=== PATIENT | male | born 1935 | race Caucasian/White ===

== ENCOUNTER → 2018-08-08 12:22 | Outpatient (CLI) | payer MEDICARE, OTHER, SELFPAY ==
--- NOTE | 2018-08-08 | DI.RAD.S_ITS ---
PROCEDURE: XR CERVICAL SPINE 2V OR 3V INDICATIONS: NECK PAIN TECHNIQUE: 3 view(s) of the cervical spine were acquired. COMPARISON: None. FINDINGS: Bones: No fractures or dislocations to the C6 level. The lateral masses of C1 appear intact on the odontoid view. No suspicious bony lesions. Diffuse facet arthropathy. Diffuse moderate narrowing of the cervical disc spaces from C4-C7. There is mild C3-C4 disc space narrowing. Endplate sclerosis and spurring. Soft tissues: No prevertebral soft tissue swelling. IMPRESSION: Moderate to severe multilevel disease cervical disc degeneration and facet arthropathy. Dictated by: Toy Garcia M.D. on 08/08/2018 at 12:59 Approved by: Toy Garcia M.D. on 08/08/2018 at 13:00
== END ==
PROVIDERS: Family Provider Family Medicine; PCP Physician Assistant Medical; Visit Provider Physician Assistant Medical
DX: M50.31 Other cervical disc degeneration, high cervical region (principal); M48.02 Spinal stenosis, cervical region; M47.812 Spondylosis without myelopathy or radiculopathy, cervical region
CPT/HCPCS: 72040

== ENCOUNTER → 2018-11-10 14:43 | Outpatient (CLI) | payer MEDICARE, OTHER, SELFPAY ==
--- NOTE | 2018-11-10 | DI.ECHO.S_ITS ---
[facility]+ [facility] +---------+ : : [address] [place] : : : : [id number] : : : : Phone: [phone]+ Echocardiogram Report + + :Name: IVONNE RAMAN Study Date: 11/10/2018 Height: 68 in : :[facility] Weight: 182 lb : : Gender: Male BSA: 2.0 m2 : :: 1935 Age: 83 yrs BP: 122/80 mmHg: :Reason For Study: A FIB : :Ordering Physician: Gildardo : :Jose Enrique Performed By: Zainab Renae : :Referring: GILDARDO ALVA : + + Interpretation Summary The left ventricle is normal in size, wall thickness, and systolic function without any focal wall motion abnormalities with the ejection fraction visually estimated to be 55-60% and appears unchanged compared to the previous study. Diastolic function could not be accurately assessed due to atrial fibrillation. The right ventricle grossly appears normal in size with probable normal systolic function and is likely unchanged compared to the previous study. The right ventricular systolic pressure is estimated to be at least 41 mmHg based on an estimated right atrial pressure of 15 mm Hg, and is likely significantly higher compared to the previous study. There is severe biatrial enlargement. The left atrium has significantly increased in size since the prior echo exam while the right atrium has mildly increased in size. There is mild mitral regurgitation and mild to moderate tricuspid regurgitation that are both more prominent compared to the previous study. There is a bioprosthetic aortic valve that is well-seated with probable normal prosthetic valve function and only trace intravalvular regurgitation through the prosthetic aortic valve. There has been no significant change since the previous study. The patient was in atrial fibrillation with heart rates between 60 and 81 bpm during the exam which is new compared to the previous study. Procedure: A two-dimensional transthoracic echocardiogram with color flow and Doppler was performed. The study quality was technically adequate. Comparison is made with the echocardiogram of 04/09/16. The patient was in atrial fibrillation with heart rates between 60 and 81 bpm during the exam. This is new compared to the previous study. Left Ventricle: The left ventricle is normal in size, wall thickness, and systolic function without any focal wall motion abnormalities. The ejection fraction is estimated to be 55-60%. This is unchanged compared to the previous study. Diastolic function could not be accurately assessed due to atrial fibrillation. Right Ventricle: The right ventricle grossly appears normal in size with probable normal systolic function. This is unchanged compared to the previous study. Atria: There is severe biatrial enlargement. The left atrium has significantly increased in size since the prior echo exam. The right atrium has mildly increased in size since the prior echo exam. There is no Doppler evidence for an interatrial shunt. Mitral Valve: The mitral valve leaflets appear mildly thickened, but open well. The mitral valve leaflets are slightly calcified. There is mild mitral regurgitation. This is slightly more prominent compared to the previous study. Aortic Valve: There is a bioprosthetic aortic valve. The prosthetic aortic valve is well-seated. There is probable normal prosthetic aortic valve function. There is trace intravalvular regurgitation through the prosthetic aortic valve. The peak aortic velocity is 2.5 m/sec. The peak aortic velocity on the previous exam was 3.2 m/sec. The aortic valve mean gradient is 13 mmHg. There has been no significant change since the previous study. Tricuspid Valve: The tricuspid valve is normal. There is mild to moderate tricuspid regurgitation. This is more prominent compared to the previous study. The right ventricular systolic pressure is estimated to be at least 41 mmHg based on an estimated right atrial pressure of 15 mm Hg. And this is likely significantly higher compared to the previous study. Pulmonic Valve: The pulmonic valve is not well seen, but is grossly normal. There is a trace or physiologic amount of pulmonic regurgitation. Great Vessels: The aortic root is normal size. The ascending aorta is normal in size. The aortic arch is normal in size. The pulmonary is not well visualized. The IVC is dilated (diameter is greater than 2.1 cm) and it collapses less than 50% with a sniff. This suggests a high right atrial pressure of 15 mm Hg. Pericardium/ Pleura There is no pericardial effusion. There is no pleural effusion. MMode/2D Measurements & Calculations LVIDd: 4.9 cm LVOT diam: 2.1 cm LVIDs: 3.2 cm Ao root diam: 3.3 cm FS: 36.0 % asc Aorta Diam: 3.2 cm EPSS: 0.57 cm Ao Arch Diam (Prox Trans): 2.7 cm IVSd: 0.97 cm LVPWd: 1.0 cm LV bach. diameter/BSA (cm/m^2): 2.5 LV sys. diameter/BSA (cm/m^2): 1.6 LA A2 area: 31.6 cm2 RA long axis: 6.4 cm LA A4 area: 36.2 cm2 RA area: 29.6 cm2 LA length (vol): 6.9 cm RA vol: 115.7 ml LA vol: 141.2 ml RA : 58.9 ml/m2 LA vol index: 71.9 ml/m2 IVC diam: 2.4 cm RVD1 (basal): 5.4 cm RVD2 (mid): 3.5 cm TAPSE: 1.5 cm Doppler Measurements & Calculations Ao V2 max: 246.8 cm/sec LVOT Max Vinicio: 101.4 cm/sec Ao V2 mean: 173.0 cm/sec LV V1 max P.1 mmHg Ao max P.4 mmHg LV V1 VTI: 19.3 cm Ao mean P.4 mmHg BERNABE(I,D): 1.4 cm2 Ao V2 VTI: 47.7 cm BERNABE(V,D): 1.4 cm2 sev ratio: 0.41 BERNABE indexed to BSA (cm^2/m^2): 0.70 MV E max vinicio: 115.0 cm/sec TR max vinicio: 252.8 cm/sec TR max P.6 mmHg PA V2 max: 57.0 cm/sec PA V2 mean: 38.4 cm/sec PA mean P.67 mmHg PA pr(Accel): -148.1 mmHg PA Accel Time: 0.09 sec SV(LVOT): 65.6 ml Reading Physician:PM
== END ==
PROVIDERS: PCP Family Medicine; Visit Provider Specialist
DX: I08.1 Rheumatic disorders of both mitral and tricuspid valves (principal); I48.91 Unspecified atrial fibrillation; Z95.2 Presence of prosthetic heart valve
CPT/HCPCS: 93306

== ENCOUNTER 2020-05-12 03:08 | Emergency (ER) | payer MEDICARE, OTHER, SELFPAY ==
[2020-05-12] VITALS (8 sets, daily range): BP systolic 115–160; BP diastolic 72–100; PULSE 72–129; RESP 15–27; O2SAT 92–98; BMI 24.9
--- NOTE | 2020-05-12 03:40 | ED_ITS ---
HPI - General Adult General Chief complaint: Urogenital-Male Stated complaint: Urinary Retention Time Seen by Provider: 05/12/20 03:13 Source: patient Mode of arrival: EMS Limitations: no limitations History of Present Illness HPI narrative: Patient is an 84-year-old male with reported history of enlarged prostate to yesterday morning had a urinary catheter removed by his primary provider. Patient states that since that catheter was removed he has been unable to urinate. He was sent over from [facility] by helicopter for abdominal pain and urinary retention and also AFib with a fast heart rate. Patient has a history of AFib. Review of Systems Constitutional Constitutional: Denies fever(s) Cardiovascular Cardiovascular: Denies chest pain, Reports rapid heart rate and Denies dyspnea Respiratory Respiratory: Denies dyspnea Gastrointestinal Gastrointestinal: Reports abdominal pain Genitourinary Genitourinary: Reports difficulty urinating Neurologic Neurologic: Denies confusion Psychiatric Psychiatric: Denies confusion Hematologic/Lymphatic Comments: On anticoagulation Patient History Medical History BPH (benign prostatic hyperplasia) (Acute) Urinary retention (Acute) Social History Smoking Status: Never smoker Smoking Status: Never smoker alcohol intake frequency: 0-2 drinks per day Alcohol type: hard liquor Substance Use Type: does not use Exam Initial Vital Signs Initial Vital Signs: Vital Signs Pulse Rate 122 H 05/12/20 03:20 Respiratory Rate 18 05/12/20 03:20 Blood Pressure 160/100 H 05/12/20 03:20 Pulse Oximetry 98 05/12/20 03:20 Const General: cooperative and comfortable Limitations: mental status not altered [facility] Head: normal to inspection and normocephalic Cardio Rate: tachycardic Rhythm: regular rhythm GI Inspection: distended Palpation: tender Skin Rashes: no rashes Neuro General: patient alert, patient awake and patient oriented x3 Extrem General: No edema Psych Appearance: grossly normal and well kempt Course Orders Ordered: Discontinued Medications Lidocaine HCl (Urojet) 5 ml TOP NOW ONE Stop: 05/12/20 03:14 Vital Signs Vital signs: Vital Signs - 8 hr 05/12/20 03:20 05/12/20 03:24 05/12/20 03:30 Pulse Rate 122 H 129 H 111 H Respiratory Rate 18 21 27 H Blood Pressure 160/100 H 138/89 141/96 H Pulse Oximetry 98 96 97 05/12/20 03:34 Pulse Rate 85 Respiratory Rate 25 H Blood Pressure 138/89 Pulse Oximetry 96 Medical Decision Making MDM Narrative Medical decision making narrative: Patient arrived tachycardic and in atrial fibrillation however after the Lynne catheter was placed with a return of 800 cc urine his heart rate decreased into the 70s/80s. In discussion with the patient. We will leave the Lynne catheter in place and have him follow up this primary provider. He was also given contact information for Urology he was given return precaution and follow-up instructions. He expressed understanding and agreement Discharge Plan Departure Patient Disposition: Home Clinical Impression: Acute retention of urine Instructions: How to Care for Your Lynne Catheter -- Male, DI for Urinary Retention in Men Activity Restrictions/Additional Instructions: I recommend that you contact your primary provider and also the urology department here at [facility]. Our urologist name is Dr. Solomon. At [phone]. Referrals: Baldomero Fontanez MD [Primary Care Provider] -
--- NOTE | 2020-05-12 04:09 | PC.NURSE ---
He has discharge printed and ready,he is awaiting his to [place],brewster catheter is draining well.Will be allowed to sleep,call frankel in reach,has no needs he said.no pain.
== END 2020-05-12 09:20 | disposition home or self-care (01) ==
PROVIDERS: Emergency Provider Emergency Medicine; PCP Family Medicine
DX: R33.8 Other retention of urine (principal); R10.9 Unspecified abdominal pain; R00.0 Tachycardia, unspecified; I48.91 Unspecified atrial fibrillation
CPT/HCPCS: 51701; 99283

== ENCOUNTER → 2020-09-21 09:29 | Outpatient (CLI) | payer MEDICARE, OTHER, SELFPAY | PROVIDERS: PCP Family Medicine; Visit Provider Specialist | DX: N39.0 Urinary tract infection, site not specified (principal); R33.9 Retention of urine, unspecified; N40.1 Benign prostatic hyperplasia with lower urinary tract symptoms; N13.8 Other obstructive and reflux uropathy | CPT/HCPCS: 52000; 76872; 87077; 87086; 87186; 99215 ==

== ENCOUNTER 2020-10-24 10:58 | Inpatient (IN) | payer MEDICARE, OTHER, SELFPAY ==
[2020-10-24] VITALS (13 sets, daily range): BP systolic 89–158; BP diastolic 56–87; PULSE 61–86; RESP 9–17; TEMP 36.4–37.2; O2SAT 92–98; BMI 26.1
--- NOTE | 2020-10-24 | PATH_ITS ---
[facility] Accession Number: [id number] . 01 Material submitted: . prostate - PROSTATE ADENOMA . 01 Clinical history: . IP SIMPLE OPEN PROSTATECTOMY . 02 Diagnosis: Prostate, Simple Open Prostatectomy: Benign nodular hyperplasia of prostate. Negative for neoplasm. MRV 10/27/2020 1143 Local . 02 Electronically signed: . Valarie Aguilar MD, Pathologist NPI- [id number] . 01 Gross description: . The specimen is received in formalin, labeled prostate adenoma and consists of multiple irregular dobbins-pink fragments of soft tissue weighing 93 grams and measuring 11.0 x 10.0 x 5.0 cm in aggregate. Sectioning reveals dobbins-white lobulated and cystic cut surfaces. A 4.0 cm in length by 0.5 cm in circumference possible portion of urethra is identified. [employer] sections are submitted in cassettes A1-A6. ([id number]) /MRV 10/25/2020 1442 Local . 02 Pathologist provided ICD-10: N40.1, R33.9 . 02 CPT . 746435 Performed at: 01 [facility] [address], [place], [place] [id number] MD Sidney Tuttle MD Phone: [phone] Performed at: 02 [facility] [address] [place], [place] [id number] MD Valarie Aguilar MD Phone: [phone]
--- NOTE | 2020-10-24 11:40 | PM.HP.1 ---
History of Present Illness History of Present Illness Date Patient Seen: 10/24/20 Time Patient Seen: 11:40 Chief complaint: IP SIMPLE OPEN PROSTATECTOMY Narrative: The patient is an 84-year-old white male with a long history of BPH and mixed obstructive and irritative voiding symptoms presenting today for planned simple open prostatectomy. The he has been under management for years with alpha blockade. In April of 2020 he experienced worsening bladder outlet obstructive symptoms. He presented to the [facility] ED and Lynne catheter was placed with 800 cc residual volume. He has failed several subsequent voiding trials. Lower tract evaluation revealed bladder outlet obstruction due to markedly enlarged prostate that measured 130 cubic cm. The patient has a history of AFib on chronic warfarin anticoagulation. He has discontinued the medication as planned in coordinated preoperatively with his primary computerized table cutter, Dr. Quispe. Patient History Medical History Afib Ascending aorta dilatation Atrial enlargement, bilateral Bicuspid aortic valve Bladder outlet obstruction BPH w urinary obs/LUTS CAD (coronary artery disease) Chronic anticoagulation Degeneration, intervertebral disc, cervical Dyslipidemia Exercise involving walking First degree AV block Hypertension LVH (left ventricular hypertrophy) Mitral regurgitation Retention of urine SVT (supraventricular tachycardia) Tricuspid regurgitation Urinary retention Valvular heart disease Surgical History H/O cardiac radiofrequency ablation History of cardiac cath S/P aortic valve replacement with bioprosthetic valve (~2006) Vasectomy status Family & Social History Social History: household members spouse Prior Living Arrangements House Safety & Behavioral: Feels Safe in Current Yes Environment Been Physically Hurt or No Threatened By a Person Suicidal Ideation Description None Suicide Plan Description No Plan Tobacco & Substance use: Tobacco type pipe Smoking Status Former smoker alcohol intake current alcohol intake frequency 0-2 drinks per day Substance Use Type does not use Meds Home Medications and Allergies Home Medications Medication Instructions Recorded Confirmed Type tamsulosin 0.4 mg capsule 0.8 mg PO BEDTIME #180 cap 05/17/20 10/24/20 Rx GR-jqykpqfgiiv-jsayvt ox-Zn ER 500 500 tab PO DAILY 06/02/20 10/24/20 History mcg-750 mg-1.5 mg-25 mg tablet,ER simvastatin 40 mg tablet 40 mg PO QPM 06/02/20 10/24/20 History terazosin 10 mg capsule 10 mg PO DAILY 06/02/20 10/24/20 History warfarin 2.5 mg tablet 2.5 mg PO DAILY 06/02/20 10/24/20 History ciprofloxacin HCl 250 mg tablet 250 mg PO BID #10 tab 10/18/20 10/24/20 Rx Allergies Allergy/AdvReac Type Severity Reaction Status Date / Time Penicillins Allergy Mild Localized Verified 10/18/20 15:09 Itching atropine AdvReac rapid Verified 10/18/20 15:09 heart rate Exam Narrative Exam Narrative: He is a well-developed, thin elderly white male in no acute distress. Head/neck-atraumatic and normocephalic. No visible adenopathy JVD. Sclerae clear bilaterally pupils are equal and round. Chest-clear, equal, nonlabored expansion bilaterally. Heart-regular rate. No abnormal heart tones appreciated. Assessment & Plan Assessment & Plan narrative: Assessment: 1. Urinary retention. 2. Failure of medical therapy and multiple voiding trials. Plan: 1. Admission today for planned simple open prostatectomy. Common side effects, possible complications, perioperative limitations/restrictions, and reasonable expectations of outcomes and recovery were reviewed at length and in detail in the outpatient setting with the patient. He provides no interval clear finding concerns or questions. He wishes to proceed.
[2020-10-24 11:52] LABS: COVID19 -Nasal RAPID Negative (Negative)
[2020-10-24] MEDS: LACTATED RINGERS 1,000 ML 42 ML IV ×2 (12:04→15:51)
[2020-10-24 12:07] LABS: Hematocrit 48.8 % (41-53); Hemoglobin 16.2 g/dL (13.5-17.5)
[2020-10-24] MEDS: VANCOMYCIN 1,000 MG/200 ML PIGGYBACK 200 MG IV (12:07)
[2020-10-24 12:16] LABS: INR 1.2 (0.9-1.3); Prothrombin Time 13.7 SECONDS (10.1-12.7)
[2020-10-24 12:19] LABS: PTT Partial Thromboplastin Tim 32 SECONDS (26.4-36.2)
[2020-10-24 12:34] LABS: BUN Creatinine Ratio 18.8 (6-22); Blood Urea Nitrogen 16 mg/dL (9-20); Calcium 10.2 mg/dL (8.4-10.2); Carbon Dioxide 25 mmol/L (22-32); Chloride 105 mmol/L (98-107); Estimated Glomerular Filt Rate > 60.0 mL/min (>60); Glucose 108 mg/dL (80-110); HEMOLYSIS < 15 (0-50); Potassium 4.3 mmol/L (3.4-5.1); Sodium 139 mmol/L (137-145)
[2020-10-24] MEDS: GENTAMICIN 160 MG in SODIUM CHLORIDE 0.9% 100 ML 104 ML IV (12:56)
--- NOTE | 2020-10-24 13:20 | SUR.OPER ---
Supine on padded OR bed, head on pillow, arms secured on padded arm boards at <90 degrees abduction, legs uncrossed, safety belt at thigh, tape over blanket over lower legs. Pillow under knees, gel pad under heels
[2020-10-24] MEDS: BUPIVACAINE 0.25% W/ EPI 30 ML VIAL INJ (13:29)
[2020-10-24] MEDS: BUPIVACAINE LIPOSOME 266 MG/20 ML VIAL INJ (13:29)
--- NOTE | 2020-10-24 13:40 | SUR.OPER ---
Patient catheterized at home. Guera APONTE'ima at start of case. 150ml of urine in leg bag.
[2020-10-24] MEDS: ACETAMINOPHEN IV 1,000 MG/100 ML VIAL 400 MG IV (15:15)
--- NOTE | 2020-10-24 15:29 | PM.OP.1 ---
Operative Date/Time/Diagnoses Date of procedure: 10/24/20 Time of procedure: 15:29 Pre-op diagnosis: Urinary retention Post-op diagnosis: same Procedure & Clinicians Procedure: 1. Simple open prostatectomy Same procedure as scheduled: Yes Indications: 1. Urinary retention. 2. Failure medical therapy. Surgeon: Crista Solomon Tool Dispatcher: Xochitl Haile Click Yes if Unassisted: No Anesthesia Type: General, Spinal and Local Operative Notes Findings: 1. Normal anterior abdominal wall tissue point. 2. Catheter tip cystitis and mucosal inflammatory changes due to long-term indwelling Lynne. 3. Nodular BPH. Closure Type: primary Specimen(s): other (Prostate adenoma) Applied: catheter (Twenty-two Pitc[place] Islander [address] Lynne catheter with 30 cc balloon) and drain(s) (15. [place] Islander Obi drain) Estimated Blood Loss (mL): 300 Blood products transfused: none Tourniquet time (min): 0 Procedure in detail: Patient was positioned in supine following successful placement of Duramorph spinal anesthesia. General anesthesia was then administered. The abdomen, genitalia, and groin were then prepped and draped in sterile fashion. A 22 [place] Islander Lynne catheter was then inserted lower urinary tract and the bladder was filled with 300 cc of sterile saline. A midline infraumbilical incision was then made above the pubic symphysis. The layers of the midline abdominal wall were then divided using cautery and blunt technique. Space of Retzius was then exposed with mobilization retraction of the adherent fat of the anterior bladder wall laterally. A solution of cord% Marcaine with epinephrine was then used to infiltrate the midline anterior bladder wall. A midline cystotomy was then created with the cautery pen. Retractors were then positioned appropriately for visualization of the bladder neck. The same anesthetic was then used to infiltrate the mucosa and subcutaneous smooth muscle circumferentially around the bladder neck. A circumferential incision was then made using the tip of the cautery pen. Next, an 0 Vicryl was then placed at the bladder neck and prostatic base for retraction. Meticulous blunt sharp and cautery dissection were then utilized to mobilize the prostatic adenoma from the confines of the capsule. 0 Vicryl using over and throws was utilized to gain exposure and retraction of the prostate toward the bladder lumen proper. The adenoma was eventually removed in its entirety and submitted to pathology for routine gross and microscopic examination. [id number]-ab-iqhsz 2-0 Prolene were then placed at the 5 and 7:00 a.m. positions of the bladder neck for hemostasis. A single horizontal mattress utilized and same suture was then placed at the distal most posterior to the bladder and then secured more proximally within the prostatic fossa. A 22 [place] Islander, 2 way 5 Lynne catheter was then passed into the bladder with the assistance of a catheter guide. The cystotomy was then closed using a running, intermittently locking 2-0 Monocryl. Hemostasis was excellent. The catheter balloon was then inflated to 30 cc and gentle traction was applied. It was then irrigated clear. There were no clots. It was placed to gravity drainage. Next, a 15 [place] Islander Obi fenestrated drain was positioned in the space of Retzius and brought out through separate stab incision to the right of midline incision. It was secured to the skin with 2-0 silk in usual fashion. Exparel local anesthetic was then used infiltrate the fascial edges and skin edges bilaterally. The fascia was then reapproximated using running 0 PDS beginning at each the superior apex, and the inferior apex in a running fashion and time 1 another together at approximately the midpoint. The subcutaneous layer was closed using running 3-0 Vicryl. The skin edges were reapproximated using a running subcuticular 4-0 Monocryl. The skin surface was cleaned and dried. Telfa dressing was tailored to the appropriate size for the incision and the drain site. Each was then covered with an Op site dressing grade and a Bioclusive finish. A orthotic assistant was required due to the complexity of the case. The orthotic assistant performed retraction, hemostasis, and suturing. Patient was then awakened, and transferred to [facility], and transported to PACU. Complications: none Post-operative Condition: stable Disposition: PACU Plan for aftercare: Acute care.
--- NOTE | 2020-10-24 16:26 | SUR.PHASEI ---
Late entry - Pt received to PACU after spinal / general anesthesia. Airway patent, self maintained. Report from Dr Calix and ROOSEVELT Dash. Dr Calix aware of hypotension. Will give additional fluid.
--- NOTE | 2020-10-24 16:28 | SUR.PHASEI ---
EBL = 400. Total IVF replaced = 1600ml. SBP now >100. Report given to ROOSEVELT Hodgson. Pt transferred to room 210 by ROOSEVELT Root and ROOSEVELT Watson. Pt belongings brought to room by ROOSEVELT Yañez.
[2020-10-24] MEDS: LACTATED RINGERS 1,000 ML 125 ML IV (16:51)
[2020-10-24 23:25] LABS: Add Manual Diff / Slide Review NO; Basophils Absolute Auto 0 /uL (0-100); Basophils Percent Auto 0.3 % (0-2); Eosinophils Absolute Auto 0 /uL (0-450); Hematocrit 40.9 % (41-53); Hemoglobin 13.5 g/dL (13.5-17.5); Lymphocytes Absolute Auto 500 /uL (1100-4500); Mean Corpuscular Hemoglobin 29.6 PG (26-34); Mean Corpuscular Volume 89.6 fL (80-100); Monocytes Absolute Auto 200 /uL (0-900); Monocytes Percent Auto 1.5 % (3-14); Neutrophils Absolute Auto 11100 /uL (1500-7000); Neutrophils Percent Auto 94.2 % (50-75); Platelet Count 152 X10^3/uL (150-400); Red Blood Cell Count 4.57 X10^6/uL (4.5-5.9); Red Cell Distribution Width 14.9 % (11.6-14.8); White Blood Cell Count 11.7 X10^3/uL (4.5-11.0)
--- NOTE | 2020-10-24 23:30 | P.EN_ITS ---
Event Note Event Note: Requested through nursing to consult the patient at the request by Dr. Elise. Upon review of his chart, it is noted his PCP is Dr. Santo who does his own admissions and consults. I informed Dr. Quigley as well as the patient's nurse of this and they will contact A on-all hospitalist for any further questions u nless something critical arises. So will not assume consult at this time. One time troponin is pending and I have been advised by his nurse that his PVCs have seemed to have resolved.
[2020-10-24 23:32] LABS: Alanine Aminotransferase 26 IU/L (<50); Albumin 3.4 g/dL (3.5-5.0); Albumin Globulin Ratio 1.4 (1.0-2.8); Alkaline Phosphatase 29 U/L (38-126); Aspartate Aminotransferase 34 IU/L (17-59); BUN Creatinine Ratio 23.9 (6-22); Bilirubin Total 0.7 mg/dL (0.2-1.3); Bilirubin Unconjugated 0.7 mg/dL (0.0-1.1); Blood Urea Nitrogen 21 mg/dL (9-20); Calcium 9.1 mg/dL (8.4-10.2); Carbon Dioxide 28 mmol/L (22-32); Chloride 104 mmol/L (98-107); Creatine Kinase 186 U/L (55-170); Estimated Glomerular Filt Rate > 60.0 mL/min (>60); Globulin 2.5 g/dL (1.7-4.1); Glucose 140 mg/dL (80-110); HEMOLYSIS 16 (0-50); Magnesium 1.7 mg/dL (1.6-2.3); Potassium 4.8 mmol/L (3.4-5.1); Sodium 137 mmol/L (137-145); Total Protein 5.9 g/dL (6.3-8.2)
[2020-10-24 23:43] LABS: Troponin I < 0.012 ng/mL (0.01-0.034)
[2020-10-24 23:47] LABS: CKMB % Relative Index 1.8 % (1.5-5.0)
--- NOTE | 2020-10-24 23:59 | PC.NURSE ---
Report received from PACU, care assumed 1630. A&Ox4. VSS. Denies pain. Short, low midline dressing with scant serosanguinous drainage, ANGELA drain. David blood in catheter, no clots, Dr. Solomon aware. Tele for AFib. Increased occurrence of PVC's. Pt. denies symptoms. Dr. Solomon informed, ordered to resume home meds and consult hospitalist. JOSE LUIS Alexander, informed. Labs ordered. Glayds spoke to Dr. Alarcon, as pt's PCP is Dontae. PVC's have decreased in frequency again without intervention. OOB to ambulate in room. Penile bleeding. Back to bed, flushed Lynne, no clots observed.
[2020-10-25] VITALS (7 sets, daily range): BP systolic 98–146; BP diastolic 58–94; PULSE 62–87; RESP 15–22; TEMP 36.3–37.4; O2SAT 94–97
[2020-10-25] MEDS: LACTATED RINGERS 1,000 ML 125 ML IV ×2 (00:10→08:44)
--- NOTE | 2020-10-25 07:17 | P.CONS_ITS ---
History of Present Illness Consult details Date Patient Seen: 10/25/20 Chief complaint: IP SIMPLE OPEN PROSTATECTOMY Reason for consult: recurrent PVCs Narrative: Pt is an 84yo man with atrial fibrillation on chronic anticoagulation, AVR, HTN, and BPH with obstructive symptoms who is POD #1 s/p open prostatectomy, consulted due to recurrent PVCs on telemetry posto peratively. Around 22:00 last night, the pt had multiple runs of recurrent PVCs. The pt was asymptomatic at the time and currently. He denies any chest pain or SOB. He has not been feeling any palpitations. He has chronic atrial fibrillation, currently rate controlled. He is not on any beta blockers or calcium channel blockers. This morning, the pt is pleasantly talkative and sitting eating breakfast in bed. He did not know there were any heart concerns last night. He is feeling well. He denies any significant pain. He continues to deny any chest pain, SOB, or palpitations. Meds Home Medications and Allergies Home Medications Medication Instructions Recorded Confirmed Type tamsulosin 0.4 mg capsule 0.8 mg PO BEDTIME #180 cap 05/17/20 10/24/20 Rx AN-higmxedqvlq-nxundp ox-Zn ER 500 500 tab PO DAILY 06/02/20 10/24/20 History mcg-750 mg-1.5 mg-25 mg tablet,ER simvastatin 40 mg tablet 40 mg PO QPM 06/02/20 10/24/20 History terazosin 10 mg capsule 10 mg PO DAILY 06/02/20 10/24/20 History warfarin 2.5 mg tablet 2.5 mg PO DAILY 06/02/20 10/24/20 History ciprofloxacin HCl 250 mg tablet 250 mg PO BID #10 tab 10/18/20 10/24/20 Rx Allergies Allergy/AdvReac Type Severity Reaction Status Date / Time Penicillins Allergy Mild Localized Verified 10/18/20 15:09 Itching atropine AdvReac rapid Verified 10/18/20 15:09 heart rate Exam Vital Signs (past 8 hours): - 10/25/20 00:00 10/25/20 05:00 Temperature 97.3 F L 97.8 F Pulse Rate 72 62 Respiratory Rate 18 18 Blood Pressure 109/66 108/64 Pulse Oximetry 97 95 Oxygen Delivery Method Room Air Oxygen Flow Rate 0 Narrative Exam Narrative: Gen: NAD, sitting comfortably in bed, appears well HEENT: normocephalic, atraumatic, sclera clear Neck: no JVD, no LAD CV: irregularly irregular rhythm, normal rate, grade 2/6 systolic murmur Resp: clear to auscultation bilaterally Abd: soft, nontender, nondistended, normoactive bowel sounds Ext: no edema Objective Labs Result Diagrams: 10/24/20 23:15 10/24/20 23:15 Labs: Laboratory Results - last 24 hr 10/24/20 10/24/20 10/24/20 11:28 11:56 11:56 WBC RBC Hgb 16.2 Hct 48.8 MCV MCH MCHC RDW Plt Count Neut % (Auto) Lymph % (Auto) Placer % (Auto) Eos % (Auto) Baso % (Auto) Neut # (Auto) Lymph # (Auto) Placer # (Auto) Eos # (Auto) Baso # (Auto) PT 13.7 H INR 1.2 APTT 32 Sodium Potassium Chloride Carbon Dioxide BUN Creatinine Estimated GFR BUN/Creatinine Ratio Glucose Calcium Magnesium Total Bilirubin Conjugated Bilirubin Unconjugated Bilirubin AST ALT Alkaline Phosphatase Total Creatine Kinase CK-MB (CK-2) CK-MB (CK-2) Rel Index Troponin I Total Protein Albumin Globulin Albumin/Globulin Ratio SARS-CoV-2 (PCR) Negative 10/24/20 10/24/20 10/24/20 11:56 23:15 23:15 WBC 11.7 H RBC 4.57 Hgb 13.5 Hct 40.9 L MCV 89.6 MCH 29.6 MCHC 33.0 RDW 14.9 H Plt Count 152 Neut % (Auto) 94.2 H Lymph % (Auto) 4.0 L Placer % (Auto) 1.5 L Eos % (Auto) 0.0 L Baso % (Auto) 0.3 Neut # (Auto) 27661 H Lymph # (Auto) 500 L Placer # (Auto) 200 Eos # (Auto) 0 Baso # (Auto) 0 PT INR APTT Sodium 139 Potassium 4.3 Chloride 105 Carbon Dioxide 25 BUN 16 Creatinine 0.85 Estimated GFR > 60.0 BUN/Creatinine Ratio 18.8 Glucose 108 Calcium 10.2 Magnesium Total Bilirubin Conjugated Bilirubin Unconjugated Bilirubin AST ALT Alkaline Phosphatase Total Creatine Kinase 186 H CK-MB (CK-2) 3.30 H CK-MB (CK-2) Rel Index 1.8 Troponin I < 0.012 Total Protein Albumin Globulin Albumin/Globulin Ratio SARS-CoV-2 (PCR) 10/24/20 23:15 WBC RBC Hgb Hct MCV MCH MCHC RDW Plt Count Neut % (Auto) Lymph % (Auto) Placer % (Auto) Eos % (Auto) Baso % (Auto) Neut # (Auto) Lymph # (Auto) Placer # (Auto) Eos # (Auto) Baso # (Auto) PT INR APTT Sodium 137 Potassium 4.8 Chloride 104 Carbon Dioxide 28 BUN 21 H Creatinine 0.88 Estimated GFR > 60.0 BUN/Creatinine Ratio 23.9 H Glucose 140 H Calcium 9.1 Magnesium 1.7 Total Bilirubin 0.7 Conjugated Bilirubin 0.0 Unconjugated Bilirubin 0.7 AST 34 ALT 26 Alkaline Phosphatase 29 L Total Creatine Kinase CK-MB (CK-2) CK-MB (CK-2) Rel Index Troponin I Total Protein 5.9 L Albumin 3.4 L Globulin 2.5 Albumin/Globulin Ratio 1.4 SARS-CoV-2 (PCR) Assessment & Plan Assessment & Plan narrative: Pt is an 84yo man with atrial fibrillation on chronic anticoagulation, AVR, HTN, and BPH with obstructive symptoms who is POD #1 s/p open prostatectomy, consulted due to recurrent PVCs on telemetry postoperatively. Pt remained asymptomatic with negative troponin. PVCs have now resolved. Would not recommend any change in medical management at this time. Could consider beta-nusrat in the future if becomes recurrent, symptomatic, issue. 1) BPH with obstruction, s/p prostatectomy: - Continue management as per Urology 2) PVCs: Resolved. Asymptomatic. - Continue telemetry while in the hospital - No medical intervention at this time 3) Atrial fibrillation: Rate controlled off medications - Restart Warfarin as soon as able as per surgical team based on Cardiology recommendations 4) HTN: BP stable Dispo: At discretion of primary Urology team. Medically stable for discharge. Medical team can be contacted in the future if additional concerns arise, but will sign-off at this time.
[2020-10-25] MEDS: ENOXAPARIN 40 MG/0.4 ML SYRINGE SUBCUT (08:44)
[2020-10-25] MEDS: TAMSULOSIN 0.4 MG CAPSULE PO (08:44)
--- NOTE | 2020-10-25 10:59 | PC.NURSE ---
Addendum entered by Taisha Louis R.N. 10/25/20 11:59: Patient has not had any more penile bleeding from urethra. He is eating his lunch and tolerating this well. He denies pain and is waiting for the doctor to see him. Original Note: Assess- Patient is alert and oriented x3. He has a brewster catheter in that does have some blood around urethra, cleaned up. Urine color is cranberry colored. Patients dressing to lower abdomen cdi with small amount of dried blood. When patient got up to the bathroom to try for a bowel movement he did have a small amount of red blood out of his penis. Cleaned up, passed gas and is now back to bed. He denies pain or discomfort. Resting comfortably. Waiting to see the Doctor. Will ask Urologist if he wants patient to take a particular medication that he had him stop before surgery.
--- NOTE | 2020-10-25 13:29 | CM.DANOTE ---
DCP/Assessment: Reviewed chart. Patient is a 84yr old male admitted to [facility] for elective prostatectomy performed by Dr. Solomon on 10-24-20. PCP listed is Dr. Fontanez. Primary payor is 1)Medicare 2)[facility]. Met with patient explained CM/SW role. Patient reports that he resides on [facility] with spouse/Mireya. Patient indicates that he is completely I in all ADL's. Patient reports the he flies small planes as hobby. Patient reports that he believes that Dr. Solomon will d/c him tomorrow? Patient has had catheter prior to admit and will be discharging with one as well. Patient reports that he is very well educated on catheter care. At this time patient does not anticipate any d/c planning needs. P: Home when medically stable. EMILY Cortez Discharge Planning/Care Management CM Discharge Assessment Start: 10/25/20 13:24 Freq: Status: Active Protocol: Document 10/25/20 13:24 KJS (Rec: 10/25/20 13:29 KJS [id number]) Discharge Planning Assessment Assigned Fur Buyer EMILY Cortez Contact Information Mireya Emmanuel (spouse) # Advance Directives? Yes History Provided By Patient,Medical Record Prior Living Arrangements House Household Members spouse Type of transporation used prior to Drives own vehicle admit Independent with ADL's Yes Is patient alert and oriented? Yes Caregiver for Another No Barriers to Discharge No Discharge Plan Home Transportation Arrangement Spouse to provide transport when stable. Patient will need priority boarding to return to [facility]. Referrals Initiated None needed Whiteboard Updated in Patient Room with Yes name and ext. # of Fur Buyer Review Status In Process Next Review Type Continued Stay Review Pre-Anesthesia Assessment Start: 10/17/20 16:40 Freq: Status: Active Protocol: Document 10/17/20 16:40 SONJA (Rec: 10/17/20 16:59 [email or web address] [id number]) Pre-Anesthesia Assessment Preferred Name Harrison Patient Information Reviewed Via Chart Review,Phone Assessment Assessment Completed With Patient H&P Completed Within 30 Days Yes Primary Care Provider Baldomero Fontanez Seen Specialist in Last 12 Months Yes Specialist Seen Emergency,Urologist Comment changing to the [facility], not yet established Primary Language Syriac Preferred Language Syriac Dean Of Student [employer] Required No Height 172.72 cm Hearing Ability Normal Visual Impairment Partially Limited Dentition Type Teeth, Natural Present Barriers to Learning Visual Other Aids No Comment reading glasses Hx Anesthesia Reactions No Hx Family Anesthesia Reaction No Hx Malignant Hyperthermia No Hx Blood Transfusions No Hx Blood Transfusion Reaction No Anesthesia Review Requested No Grinder Tender No alcohol intake current alcohol intake frequency 0-2 drinks per day Smoking Status Former smoker Tobacco type pipe Has it been 2 weeks or less since No patient quit smoking how long ago did patient quit smoking 1972 Substance Use Type does not use Pain Present Pain Reported Comment discomfort from catheter History of Falling (Recent or History of No ) Patient is completely paralyzed or Yes completely immobile Ambulatory Aid None/bed rest/nurse assist Gait/Transferring Normal/bedrest/immobile Mental Status Oriented to own ability Is patient on oxygen? No Does patient have HONG/SOB No Hx Sleep Apnea No CPAP/BIPAP use prescribed not used Currently Taking a Beta Danuta No Can You Climb a Flight of Stairs Without Yes SOB Hx Chest Pain No Hx SOB No Hx Syncope or Dizziness No Anti-Coagulant Therapy Yes: Warfarin, last dose will be 10/19/20 Has a Head Sampler Yes: Jose Enrique Cardiac Testing Yes: Echo 10/31 EF 55-60% Hx Pacemaker/ICD No Pacemaker Rep Required? No Cardiac Clearance Received Not Applicable Diet Type At Home Regular dysphagia No Bladder Pattern Retention Urinary Catheter Present Yes Hx Urinary Self Catheterization No Diabetes No Hx Drug Resistant Organism No Presence of External or Internal Medical Yes: Catheter Devices Have you had any close contact with No someone diagnosed with COVID-19? Evaluation/Screening for possible COVID- Yes 19 infection completed? Comment has had two vaccines, Covid test on DOS - plans rapid on admit Marital Status Lives With spouse Prior Living Arrangements House Number of Floors (Floors) Two Floors Support System Spouse Does the Patient Have Assistance After Yes Surgery Patient Discharge Plan Description Home Health Feels Safe in Current Environment Yes Been Physically Hurt or Threatened By a No Person in Current Environment Do you have thoughts of harming yourself None or others? Are you currently considering suicide? No Do you have a plan to hurt yourself or No Plan others? Do You Have Any Spiritual Beliefs That No May Affect Your HC Choices? Do You Have Any Cultural Practices That No May Affect Your HC Choices? Comment Restorationism Who Can We Speak to About Patient's Care Family & Friends Identifying Code for Release of Patient Declined Information Health Care Proxy/Next of Kin Spouse - Mireya Blinn Health Care Proxy ; [phone] Emergency Contact Name Spouse - Mireya Emmanuel Emergency Contact ; [phone] Advance Directives? Yes Requested Patient Bring Advanced Yes Directives DOS Power of Banana Ripening Room Supervisor Yes Power of Banana Ripening Room Supervisor Name Spouse - Mireya Emmanuel Power of Banana Ripening Room Supervisor ; [phone] PAC Instructions Assistance for 24 hours post- op,Do not shave/clip surgical site,Medications to take/avoid ,No ETOH/petroleum product on skin DOS,NPO,Post-op transportation,Pre-op antibiotic,Pre-surgical wash, Sensory aids,Sturdy shoes/ comfortable clothes,Do not bring valuables and remove jewelry
--- NOTE | 2020-10-25 19:27 | PM.PN.1 ---
Subjective Subjective Date Patient Seen: 10/25/20 Time Patient Seen: 12:20 Interval history: The patient is postop day 1. Status post simple open prostatectomy for urinary retention and failure of multiple voiding trials and medical therapy. He reports a uneventful initial recovery. He denies issue with significant pain. He tolerated general diet beginning last evening. He has been up and ambulating about his room. Exam Vital Signs (past 8 hours): - 10/25/20 12:49 10/25/20 16:25 Temperature 97.9 F 99.0 F Pulse Rate 73 87 Respiratory Rate 19 16 Blood Pressure 108/67 136/94 H Pulse Oximetry 96 95 Oxygen Delivery Method Room Air Oxygen Flow Rate 0 Narrative Exam Narrative: Sitting upright in bed in no acute distress. Color is good. He just finished a lunch. Chest-clear, equal, nonlabored expansion bilaterally. Heart-regular rate and rhythm. Abdomen mildly protuberant and nondistended. Dressings and drain are intact. Genitalia indwelling Lynne draining a light brownish discolored urine without clot. Extremities-no pallor, cyanosis, or edema. Objective Labs Result Diagrams: 10/24/20 23:15 10/24/20 23:15 Labs: Laboratory Results - last 24 hr 10/24/20 10/24/20 10/24/20 23:15 23:15 23:15 WBC 11.7 H RBC 4.57 Hgb 13.5 Hct 40.9 L MCV 89.6 MCH 29.6 MCHC 33.0 RDW 14.9 H Plt Count 152 Neut % (Auto) 94.2 H Lymph % (Auto) 4.0 L Citrus % (Auto) 1.5 L Eos % (Auto) 0.0 L Baso % (Auto) 0.3 Neut # (Auto) 20312 H Lymph # (Auto) 500 L Citrus # (Auto) 200 Eos # (Auto) 0 Baso # (Auto) 0 Sodium 137 Potassium 4.8 Chloride 104 Carbon Dioxide 28 BUN 21 H Creatinine 0.88 Estimated GFR > 60.0 BUN/Creatinine Ratio 23.9 H Glucose 140 H Calcium 9.1 Magnesium 1.7 Total Bilirubin 0.7 Conjugated Bilirubin 0.0 Unconjugated Bilirubin 0.7 AST 34 ALT 26 Alkaline Phosphatase 29 L Total Creatine Kinase 186 H CK-MB (CK-2) 3.30 H CK-MB (CK-2) Rel Index 1.8 Troponin I < 0.012 Total Protein 5.9 L Albumin 3.4 L Globulin 2.5 Albumin/Globulin Ratio 1.4 PFSH Medical History Afib Ascending aorta dilatation Atrial enlargement, bilateral Bicuspid aortic valve Bladder outlet obstruction BPH w urinary obs/LUTS CAD (coronary artery disease) Chronic anticoagulation Degeneration, intervertebral disc, cervical Dyslipidemia Exercise involving walking First degree AV block Hypertension LVH (left ventricular hypertrophy) Mitral regurgitation Retention of urine SVT (supraventricular tachycardia) Tricuspid regurgitation Urinary retention Valvular heart disease Surgical History H/O cardiac radiofrequency ablation History of cardiac cath S/P aortic valve replacement with bioprosthetic valve (~2006) Vasectomy status Social History marital status: number of children: 2 household members: spouse Smoking Status: Former smoker alcohol intake: current caffeine: Yes Assessment & Plan Assessment & Plan narrative: Assessment: 1. Stable postoperative day 1. Status post simple open prostatectomy. Plan: 1. Increase diet and activity. 2. Pathology pending. 3. Catheter care and use instruction. Patient familiar with same.
[2020-10-25] MEDS: SIMVASTATIN 40 MG TABLET PO (21:40)
[2020-10-25] MEDS: OXYCODONE IR 5 MG TABLET PO (21:41)
[2020-10-25] MEDS: SODIUM CHLORIDE 0.9% FLUSH 10 ML IV (21:41)
[2020-10-26] MEDS: BELLADONNA/OPIUM SUPPOSITORIES 1 EACH PR (04:12)
[2020-10-26 04:26] VITALS: BP 160/73; PULSE 74; RESP 18; TEMP 36.6; O2SAT 98
--- NOTE | 2020-10-26 06:52 | PC.NURSE ---
Pt w/ minor spotting of blood around urethra and leaking of urine around cath, complaining about pressure and pain in bladder and penis. Provider contacted, belladonna-opium CA ordered PRN. Pt reports significant relief with medication.
[2020-10-26 08:00] VITALS: BP 148/79; RESP 18; TEMP 36.2; O2SAT 97
[2020-10-26 08:33] VITALS: BP 153/86; PULSE 70; RESP 14; TEMP 36.7; O2SAT 96
[2020-10-26] MEDS: TAMSULOSIN 0.4 MG CAPSULE PO (09:16)
[2020-10-26] MEDS: ENOXAPARIN 40 MG/0.4 ML SYRINGE SUBCUT (09:16)
--- NOTE | 2020-10-26 09:41 | PC.NURSE ---
Assess- Patient is alert and oriented. Bladder scan showed 3ml. Patient changed over to a leg bag and teaching done. He is familiar with this as he has had a catheter for the past 6 months. Denies pain to bladder and area is soft. Patient is getting dressed, he will catch [employer] taxi to [place] and has to be down to the er entrance at 1030. Leg bag attached to brewster cath itself, no extention tubing used per orders. Obi Drain taken out and iv. Patient is getting changed and will be taken down by wheel chair and he [place] get in [place]
--- NOTE | 2020-10-26 10:00 | PC.NURSE ---
Pt is getting dressed and ready for discharge to taxi for transport to [facility] to [place]. IV has been removed, drain has been removed. Pt has received instruction on how to manage his catheter. Pt to make a follow up appointment for 2 weeks from now. Reviewed stroke education, discharge meds, time of last dose, reviewed s/s of infection and when to call MD, reminded Pt that taking narcotics can cause constipation and reminded Pt to drink plenty of fluids to prevent constipation or dehydration. Pt states he has had a catheter since April and is well versed in proper use. Pt denies further questions and will be discharged to the taxi with all belongings. Spouse to meet Pt on the [place] side.
--- NOTE | 2020-10-26 15:28 | PM.DS.1 ---
History of Present Illness History of Present Illness Date Patient Seen: 10/26/20 Time Patient Seen: 07:15 Chief complaint: IP SIMPLE OPEN PROSTATECTOMY Narrative: The patient is an 84-year-old white male with a long history of BPH and mixed obstructive and irritative voiding symptoms presenting today for planned simple open prostatectomy. The he has been under management for years with alpha blockade. In April of 2020 he experienced worsening bladder outlet obstructive symptoms. He presented to the [facility] ED and Lynne catheter was placed with 800 cc residual volume. He has failed several subsequent voiding trials. Lower tract evaluation revealed bladder outlet obstruction due to markedly enlarged prostate that measured 130 cubic cm. The patient has a history of AFib on chronic warfarin anticoagulation. He has discontinued the medication as planned in coordinated preoperatively with his primary court collections officer, Dr. Quispe. Discharge Providers Provider Date of admission: 10/24/20 10:58 Discharge Date: 10/26/20 Primary care physician: Baldomero Fontanez MD Consults: 10/25/20 07:28 Consult to Physician Routine Comment: Consulting Provider: Bj Santo Reason for consultation: cardiac history, ectopy Has provider been notified: Yes Discharge provider: Crista Solomon MD Summary Hospital Course Discharge Diagnosis: Urinary retention Hospital Course: Patient was admitted on the morning of 10/24/2020, and underwent uncomplicated simple open prostatectomy under general and Duramorph spinal anesthesia. His postoperative course was largely uneventful in that he tolerated general diet the evening immediately postoperatively, and was able ambulate independently beginning the evening postoperatively and without assistance on the 1st postoperative morning. On the morning of 10/26/2020, he was stable for discharge and was provided post open prostatectomy activity, driving, and hygiene and restriction instructions. He will resume warfarin at 2.5 mg at this evening and will follow up in the INR clinic the beginning of next week on the [place]. He is provided prescription for oxycodone 5 mg 20. With instructions. Postoperative follow-up and catheter removal will be arranged as an outpatient for 11/07/2020. Status at Discharge Cognitive/behavioral status at discharge: oriented Functional status at discharge: independent ambulation Overall status at discharge: patient is back to baseline Exam Vital Signs (past 8 hours): - 10/26/20 08:00 10/26/20 08:33 Temperature 97.1 F L 98.1 F Pulse Rate 70 Respiratory Rate 18 14 Blood Pressure 148/79 H 153/86 H Pulse Oximetry 97 96 Oxygen Delivery Method Room Air Oxygen Flow Rate 0 Narrative Exam Narrative: He is resting comfortably in bed in no acute distress. Chest-equal, clear and unlabored expansion bilaterally. Heart-regular rhythm and rate. Abdomen-bowel tones are active and no distension. Dressings and drain are intact. Lynne-has very light pink outflow without clot. Extremities-no edema, cyanosis, pallor, or clubbing. Objective Labs Result Diagrams: 10/24/20 23:15 10/24/20 23:15 [facility] Medical History Afib Ascending aorta dilatation Atrial enlargement, bilateral Bicuspid aortic valve Bladder outlet obstruction BPH w urinary obs/LUTS CAD (coronary artery disease) Chronic anticoagulation Degeneration, intervertebral disc, cervical Dyslipidemia Exercise involving walking First degree AV block Hypertension LVH (left ventricular hypertrophy) Mitral regurgitation Retention of urine SVT (supraventricular tachycardia) Tricuspid regurgitation Urinary retention Valvular heart disease Surgical History H/O cardiac radiofrequency ablation History of cardiac cath S/P aortic valve replacement with bioprosthetic valve (~2006) Vasectomy status Social History marital status: number of children: 2 household members: spouse Smoking Status: Former smoker alcohol intake: current caffeine: Yes Discharge Assessment & Plan Assessment and Plan Assessment: Assessment: 1. Stable status post simple open prostatectomy for urinary retention. Plan of Treatment: 1. Discharge home today. 2. Follow-up on surgical pathology by phone in 5-7 days. 3. Supervised voiding trial to be conducted 11/07/2020. Discharge Plan Discharge Plan Patient Disposition: Home Provider Discharge Comment: Contact Urology Clinic 10/27/2020 for follow-up appointment Discharge orders & Medications Prescriptions: New oxycodone 5 mg Tablet 5 mg PO Q4H PRN (Reason: Pain, Moderate (4-6)) Qty: 20 RF: 0 Continued tamsulosin 0.4 mg capsule 0.8 mg PO BEDTIME Qty: 180 RF: 3 warfarin 2.5 mg tablet 2.5 mg PO DAILY RF: 0 simvastatin 40 mg tablet 40 mg PO QPM RF: 0 AR-cauvdnfolpl-ziqxkc ox-zinc 500-750-1.5-25 kyy-ws-xs-mg tablet,ext release multiphase 500 tab PO DAILY RF: 0 Discontinued ciprofloxacin HCl [Cipro] 250 mg tablet 250 mg PO BID Qty: 10 RF: 0 terazosin 10 mg capsule 10 mg PO DAILY RF: 0 No Action oxycodone 5 mg tablet 5 mg PO Q4H PRN (Reason: pain) Qty: 20 RF: 0 Follow up/Referrals: Crista Solomon MD [Physician] - Baldomero Fontanez MD [Primary Care Provider] - Diet/Activity/Treatments Diet: Diet as Tolerated Activity: no lifting greater than 15 lb or strenuous activity x4 weeks Catheter: 2-way Lynne Skin/Wound/Dressing Care Report to your healthcare provider any signs of infection, such as:: chills, fever, increased pain, unusual drainage and unusual redness Dressing: leave incision open to air. Visit Report/Discharge Packet Instructions: How to Care for Your Lynne Catheter -- Male, Prostatectomy, DI for Prescription Opioid Use, Oxycodone Stand Alone Forms: Surgery Discharge Discharge Data Primary Care Provider: Baldomero Fontanez
== END 2020-10-26 10:17 | disposition home or self-care (01) | DRG 707 ==
PROVIDERS: Internal Medicine; Nurse Practitioner Family; Admitting Provider Specialist; PCP Family Medicine; Referring Provider Specialist; Visit Provider Specialist
PROC: 0VT00ZZ Resection of Prostate, Open Approach (ICD-10-PCS; principal; 2020-10-24 12:15)
DX: N40.1 Benign prostatic hyperplasia with lower urinary tract symptoms (principal); I48.19 Other persistent atrial fibrillation; R33.8 Other retention of urine; I49.3 Ventricular premature depolarization; E78.5 Hyperlipidemia, unspecified; I10 Essential (primary) hypertension; I25.10 Atherosclerotic heart disease of native coronary artery without angina pectoris; Z95.3 Presence of xenogenic heart valve; Z20.822 Contact with and (suspected) exposure to COVID-19; Z87.891 Personal history of nicotine dependence; Z79.01 Long term (current) use of anticoagulants
CPT/HCPCS: 36415; 55831; 80048; 80076; 82550; 82553; 83735; 84484; 85014; 85018; 85025; 85610; 85730; 87086; 87635; 94762; 99232; C9803; C9290; J0131; J1100; J1650; J2250; J2274; J2405; J2704; J3010

== ENCOUNTER → 2020-12-20 11:56 | Outpatient (CLI) | payer MEDICARE, OTHER, SELFPAY ==
[2020-10-26 11:44] VITALS: BMI 26.1
== END ==
PROVIDERS: PCP Family Medicine; Visit Provider Specialist
DX: R30.0 Dysuria (principal); Z09 Encounter for follow-up examination after completed treatment for conditions other than malignant neoplasm
CPT/HCPCS: 81002; 87086; 99213

== ENCOUNTER → 2021-05-31 09:58 | Outpatient (CLI) | payer MEDICARE, OTHER, SELFPAY ==
[2020-12-20 12:15] VITALS: BMI 26.1
[2021-05-31 20:07] LABS: Prostate Specific Antigen 2.48 ng/mL (0.10-4.00)
== END ==
PROVIDERS: PCP Family Medicine; Referring Provider Specialist; Visit Provider Specialist
DX: R33.9 Retention of urine, unspecified (principal); N40.1 Benign prostatic hyperplasia with lower urinary tract symptoms; N13.8 Other obstructive and reflux uropathy
CPT/HCPCS: 84153

== ENCOUNTER → 2021-06-14 13:14 | Outpatient (CLI) | payer MEDICARE, OTHER, SELFPAY ==
[2020-12-20 12:15] VITALS: BMI 26.1
== END ==
PROVIDERS: PCP Family Medicine; Visit Provider Specialist
DX: N39.0 Urinary tract infection, site not specified (principal); N40.0 Benign prostatic hyperplasia without lower urinary tract symptoms
CPT/HCPCS: 51798; 81002; 87086; 99214

== ENCOUNTER → 2021-09-11 10:39 | Outpatient (CLI) | payer MEDICARE, OTHER, SELFPAY ==
[2021-07-21 11:48] VITALS: BMI 26.1
--- NOTE | 2021-09-11 | DI.ECHO.S_ITS ---
[facility]+ [facility] +---------+ : : [address] : [address] : : : : [id number] : : : : Phone: [phone]+ Echocardiogram Report + + :Name: IVONNE RAMAN Study Date: 09/11/2021 Height: 68 in : :[facility] ReadingLocation: Weight: 180 lb : : Gender: Male BSA: 2.0 m2 : :: 1935 Age: 85 yrs BP: 165/98 mmHg: :Reason For Study: PROSTHETIC HEART VALVE : :Ordering Physician: NIDA, : :GILDARDO Performed By: Asuncion Dickerson : :Referring: GILDARDO ALVA : + + Interpretation Summary Left ventricular systolic function is borderline reduced in a global fashion with an estimated ejection fraction of 50 to 55% with a mild dyssynchronous contraction pattern but no obvious focal wall motion abnormality and appears slightly less dynamic compared to the previous study. Left ventricular size and wall thickness remain normal. Diastolic function remains challenging to assess because of atrial fibrillation but there is no compelling evidence for increased filling pressures. The right ventricle appears normal in size with borderline reduced systolic function but appears unchanged since the previous study. Right ventricular systolic pressure is likely around 30 mmHg with a CVP of 3 mmHg, and both values are likely lower compared to the previous study. There is moderate left atrial enlargement with normal right atrial size. Both are significantly smaller compared to the previous echocardiogram. There is mild mitral and mild tricuspid regurgitation; the latter is slightly less prominent compared to the previous study. There is a bioprosthetic aortic valve prosthesis that appears to open well without any evidence for aortic stenosis. There is mild aortic regurgitation that is slightly more prominent compared to the previous study. The ascending aorta measures slightly enlarged at 3.6 cm, up from 3.2 cm previously. The patient was in atrial fibrillation at 65 to 85 bpm, similar to the previous exam. Procedure: A two-dimensional transthoracic echocardiogram with color flow and Doppler was performed. The study quality was technically adequate. Comparison is made with the echocardiogram of 11/10/2018. The patient was in atrial fibrillation with heart rates between 65-85 bpm during the exam. This is unchanged compared to the previous study. Left Ventricle: The left ventricle is normal in size and wall thickness. The estimated left ventricular end diastolic volume is 67 ml. Left ventricular systolic function is borderline reduced. The ejection fraction is estimated to be 50-55%. There is a mild dyssynchronous contraction pattern, consistent with a conduction abnormality. There are no focal wall motion abnormalities. This is slightly less dynamic compared to the previous study. Diastolic function could not be accurately assessed due to atrial fibrillation. There is no compelling evidence for increased filling pressures. Right Ventricle: The right ventricle is normal size. Right ventricular systolic function is at the lower limits of normal. This is unchanged compared to the previous study. Atria: The left atrium is moderately dilated. Both atria have significantly decreased in size since the prior echo exam. Right atrial size is normal. There is no Doppler evidence for an interatrial shunt. Mitral Valve: There is mild mitral annular calcification. The mitral valve leaflets appear mildly thickened, but open well. There is mild mitral regurgitation. This is unchanged compared to the previous study. Aortic Valve: There is a bioprosthetic aortic valve. The prosthetic aortic valve appears to open well. The gradients through the prosthetic aortic valve are within the normal range for this type of valve. There is probable normal prosthetic aortic valve function. There is no aortic valve stenosis. There is mild aortic regurgitation. This is slightly more prominent compared to the previous study. Tricuspid Valve: The tricuspid valve is normal in structure and function. There is mild tricuspid regurgitation. This is slightly less prominent compared to the previous study. The right ventricular systolic pressure is estimated to be at least 30 mmHg based on an estimated right atrial pressure of 3 mm Hg. Both values are likely lower compared to the previous study. Pulmonic Valve: The pulmonic valve leaflets are thin and pliable; valve motion is normal. There is trace pulmonic regurgitation. Great Vessels: The aortic root is normal size. The ascending aorta is at the upper limits of normal in size. This is larger compared to the previous study. The IVC is of normal diameter and collapses greater than 50% with a sniff. This suggests a low right atrial pressure of 3 mm Hg. Pericardium/ Pleura There is no pericardial effusion. There is no pleural effusion. MMode/2D Measurements & Calculations LVIDd: 5.0 cm LVOT diam: 2.0 cm LVIDs: 3.6 cm Ao root diam: 3.2 cm FS: 27.8 % asc Aorta Diam: 3.6 cm IVSd: 1.0 cm Ao Arch Diam (Prox Trans): 2.5 cm LVPWd: 0.86 cm LV bach. diameter/BSA (cm/m^2): 2.5 LV sys. diameter/BSA (cm/m^2): 1.8 LA A2 area: 28.7 cm2 RA long axis: 6.5 cm LA A4 area: 25.4 cm2 RA area: 20.2 cm2 LA length (vol): 7.1 cm RA vol: 53.1 ml LA vol: 87.5 ml RA : 27.2 ml/m2 LA vol index: 44.8 ml/m2 IVC diam: 1.3 cm RVD1 (basal): 3.6 cm RVD2 (mid): 3.0 cm TAPSE: 1.5 cm Doppler Measurements & Calculations Ao V2 max: 227.2 cm/sec LVOT Max Vinicio: 60.8 cm/sec Ao V2 mean: 165.9 cm/sec LV V1 max P.5 mmHg Ao max P.7 mmHg LV V1 VTI: 11.8 cm Ao mean P.0 mmHg BERNABE(I,D): 0.87 cm2 Ao V2 VTI: 44.5 cm BERNABE(V,D): 0.88 cm2 sev ratio: 0.26 BERNABE indexed to BSA (cm^2/m^2): 0.45 MV E max vinicio: 94.6 cm/sec TR max vinicio: 257.6 cm/sec MV A max vinicio: 1.1 cm/sec TR max P.5 mmHg MV E/A: 84.9 PA V2 max: 133.2 cm/sec Med Peak E' Vinicio: 8.4 cm/sec PA V2 mean: 96.7 cm/sec E/E' med: 11.3 PA mean P.1 mmHg Lat Peak E' Vinicio: 13.7 cm/sec PA pr(Accel): 48.2 mmHg E/E' lat: 6.9 E/e' average: 9.1 MV dec time: 0.25 sec SV(LVOT): 38.7 ml Reading Physician:07:33 AM
== END ==
PROVIDERS: PCP Family Medicine; Referring Provider Physician Assistant Medical; Visit Provider Physician Assistant Medical
DX: I77.89 Other specified disorders of arteries and arterioles (principal); I08.3 Combined rheumatic disorders of mitral, aortic and tricuspid valves; Z95.2 Presence of prosthetic heart valve
CPT/HCPCS: 93306

== ENCOUNTER → 2021-09-20 09:03 | Outpatient (CLI) | payer MEDICARE, OTHER, SELFPAY ==
[2021-07-21 11:48] VITALS: BMI 26.1
[2021-09-20 19:35] LABS: Alanine Aminotransferase 22 IU/L (<50); Albumin 4.3 g/dL (3.5-5.0); Albumin Globulin Ratio 1.7 (1.0-2.8); Alkaline Phosphatase 34 U/L (38-126); Aspartate Aminotransferase 33 IU/L (17-59); BUN Creatinine Ratio 19.1 (6-22); Bilirubin Total 0.9 mg/dL (0.2-1.3); Blood Urea Nitrogen 18 mg/dL (9-20); Calcium 9.7 mg/dL (8.4-10.2); Carbon Dioxide 32 mmol/L (22-32); Chloride 102 mmol/L (98-107); Estimated Glomerular Filt Rate > 60.0 mL/min (>60); Globulin 2.6 g/dL (1.7-4.1); Glucose 99 mg/dL (80-110); HEMOLYSIS < 15 (0-50); Potassium 4.6 mmol/L (3.4-5.1); Sodium 140 mmol/L (137-145); Total Protein 6.9 g/dL (6.3-8.2)
[2021-09-23 13:45] LABS: Cholesterol, Total 164 mg/dL (100-199); HDL-Cholesterol 63 mg/dL (>39); HDL-Particle (Total) 39.8 umol/L (>=30.5); LDL Particle 1150 nmol/L (<1000); LDL Size 20.8 nm (>20.5); LDL-Cholsterol 84 mg/dL (0-99); LP-IR Score 40 (<=45); Small LDL- Particle 437 nmol/L (<=527); Triglycerides 93 mg/dL (0-149)
== END ==
PROVIDERS: PCP Family Medicine; Visit Provider Specialist
DX: I48.19 Other persistent atrial fibrillation (principal); E78.5 Hyperlipidemia, unspecified
CPT/HCPCS: 80053; 80061; 83704; 83735

== ENCOUNTER → 2022-04-05 11:15 | Outpatient (CLI) | payer MEDICARE, OTHER, SELFPAY ==
[2021-07-21 11:48] VITALS: BMI 26.1
[2022-04-06 04:44] LABS: Alanine Aminotransferase 27 IU/L (<50); Albumin 4.2 g/dL (3.5-5.0); Albumin Globulin Ratio 1.6 (1.0-2.8); Alkaline Phosphatase 45 U/L (38-126); Aspartate Aminotransferase 33 IU/L (17-59); BUN Creatinine Ratio 23.8 (6-22); Blood Urea Nitrogen 20 mg/dL (9-20); Calcium 9.5 mg/dL (8.4-10.2); Carbon Dioxide 28 mmol/L (22-32); Chloride 102 mmol/L (98-107); Estimated Glomerular Filt Rate > 60 mL/min (>60); Globulin 2.6 g/dL (1.7-4.1); Glucose 102 mg/dL (80-110); HEMOLYSIS < 15 (0-50); Magnesium 1.9 mg/dL (1.6-2.3); Potassium 4.8 mmol/L (3.4-5.1); Sodium 138 mmol/L (137-145); Total Protein 6.8 g/dL (6.3-8.2)
[2022-04-09 09:01] LABS: Cholesterol, Total 162 mg/dL (100-199); HDL-Cholesterol 58 mg/dL (>39); HDL-Particle (Total) 40.6 umol/L (>=30.5); LDL Particle 1473 nmol/L (<1000); LDL Size 20.3 nm (>20.5); LDL-Cholsterol 87 mg/dL (0-99); LP-IR Score 51 (<=45); Small LDL- Particle 841 nmol/L (<=527); Triglycerides 90 mg/dL (0-149)
== END ==
PROVIDERS: Specialist; PCP Family Medicine; Visit Provider Physician Assistant Medical
DX: N40.1 Benign prostatic hyperplasia with lower urinary tract symptoms (principal); I10 Essential (primary) hypertension; N13.8 Other obstructive and reflux uropathy; E78.5 Hyperlipidemia, unspecified; I48.19 Other persistent atrial fibrillation
CPT/HCPCS: 80053; 80061; 83704; 83735; 84153

== ENCOUNTER → 2022-04-30 13:31 | Outpatient (CLI) | payer MEDICARE, OTHER, SELFPAY ==
[2021-07-21 11:48] VITALS: BMI 26.1
[2022-04-30 20:12] LABS: Alanine Aminotransferase 25 IU/L (<50); Albumin Globulin Ratio 1.6 (1.0-2.8); Alkaline Phosphatase 57 U/L (38-126); Aspartate Aminotransferase 33 IU/L (17-59); BUN Creatinine Ratio 20.7 (6-22); Bilirubin Total 0.7 mg/dL (0.2-1.3); Blood Urea Nitrogen 18 mg/dL (9-20); Calcium 9.1 mg/dL (8.4-10.2); Carbon Dioxide 28 mmol/L (22-32); Chloride 101 mmol/L (98-107); Estimated Glomerular Filt Rate > 60 mL/min (>60); Globulin 2.5 g/dL (1.7-4.1); Glucose 108 mg/dL (80-110); HEMOLYSIS 31 (0-50); Magnesium 1.8 mg/dL (1.6-2.3); Potassium 4.3 mmol/L (3.4-5.1); Sodium 137 mmol/L (137-145); Total Protein 6.5 g/dL (6.3-8.2)
== END ==
PROVIDERS: PCP Family Medicine; Visit Provider Specialist
DX: I10 Essential (primary) hypertension (principal); E78.5 Hyperlipidemia, unspecified; I48.19 Other persistent atrial fibrillation
CPT/HCPCS: 80053; 83735

== ENCOUNTER → 2022-10-16 11:10 | Outpatient (CLI) | payer MEDICARE, OTHER, SELFPAY ==
[2021-07-21 11:48] VITALS: BMI 26.1
[2022-10-16 20:04] LABS: Alanine Aminotransferase 35 IU/L (<50); Albumin 4.2 g/dL (3.5-5.0); Albumin Globulin Ratio 1.8 (1.0-2.8); Alkaline Phosphatase 53 U/L (38-126); Aspartate Aminotransferase 37 IU/L (17-59); Blood Urea Nitrogen 16 mg/dL (9-20); Calcium 9.5 mg/dL (8.4-10.2); Carbon Dioxide 29 mmol/L (22-32); Chloride 102 mmol/L (98-107); Estimated Glomerular Filt Rate > 60 mL/min (>60); Globulin 2.3 g/dL (1.7-4.1); Glucose 99 mg/dL (80-110); HEMOLYSIS < 15 (0-50); Magnesium 1.9 mg/dL (1.6-2.3); Potassium 4.4 mmol/L (3.4-5.1); Sodium 138 mmol/L (137-145); Total Protein 6.5 g/dL (6.3-8.2)
[2022-10-20 15:58] LABS: Cholesterol, Total 132 mg/dL (100-199); HDL-Cholesterol 58 mg/dL (>39); LDL Particle 853 nmol/L (<1000); LDL Size 21.1 nm (>20.5); LDL-Cholsterol 58 mg/dL (0-99); LP-IR Score 35 (<=45); Small LDL- Particle 347 nmol/L (<=527); Triglycerides 82 mg/dL (0-149)
== END ==
PROVIDERS: PCP Family Medicine; Visit Provider Specialist
DX: I10 Essential (primary) hypertension (principal); E78.5 Hyperlipidemia, unspecified; I48.19 Other persistent atrial fibrillation; I49.3 Ventricular premature depolarization
CPT/HCPCS: 80053; 80061; 83704; 83735

== ENCOUNTER → 2023-01-23 09:25 | Outpatient (CLI) | payer MEDICARE, OTHER, SELFPAY ==
[2021-07-21 11:48] VITALS: BMI 26.1
[2023-01-23 19:40] LABS: Cholesterol 138 mg/dL (140-199); Glucose 102 mg/dL (80-110); HDL Cholesterol 55 mg/dL (40-60); LDL Cholesterol Calculated 61 mg/dL (<100); Triglycerides 112 mg/dL (35-150)
[2023-01-23 20:10] LABS: Prostate Specific Antigen Scrn 2.03 ng/mL (0.1-4.0)
[2023-01-24 16:38] LABS: Hep C Virus Ab w/Reflex Quant NEGATIVE s/c (NEGATIVE)
== END ==
PROVIDERS: PCP Family Medicine; Visit Provider Family Medicine
DX: I25.10 Atherosclerotic heart disease of native coronary artery without angina pectoris (principal); Z12.5 Encounter for screening for malignant neoplasm of prostate; Z13.1 Encounter for screening for diabetes mellitus; Z13.220 Encounter for screening for lipoid disorders; Z11.59 Encounter for screening for other viral diseases
CPT/HCPCS: 80061; 82947; 86803; G0103

== ENCOUNTER 2023-04-08 14:51 | Emergency (ER) | payer MEDICARE, OTHER, SELFPAY ==
[2021-07-21 11:48] VITALS: BMI 26.1
[2023-04-08 15:03] VITALS: BP 134/83; PULSE 84; RESP 16; TEMP 36.6; O2SAT 98; BMI 26.4
--- NOTE | 2023-04-08 15:08 | DI.RAD.S_ITS ---
PROCEDURE: XR CHEST 1V INDICATIONS: chest pain TECHNIQUE: One view of the chest was acquired. COMPARISON: None. FINDINGS: Surgical changes and devices: Median sternotomy wires are seen. Lungs and pleura: Lungs are clear. No pleural effusions or pneumothorax. Mediastinum: Tortuous thoracic aorta is seen. Heart size is mildly enlarged. Bones and chest wall: No suspicious bony lesions. Overlying soft tissues appear unremarkable. IMPRESSION: No acute cardiopulmonary pathology. Dictated by: lEías Mi M.D. on 04/08/2023 at 16:08 Approved by: Elías Mi M.D. on 04/08/2023 at 16:08
[2023-04-08 15:34] LABS: Add Manual Diff / Slide Review NO; Basophils Absolute Auto 0 /uL (0-100); Basophils Percent Auto 0.6 % (0-2); Eosinophils Absolute Auto 100 /uL (0-450); Eosinophils Percent Auto 0.6 % (2-4); Hematocrit 43.2 % (41-53); Hemoglobin 14.9 g/dL (13.5-17.5); Lymphocytes Absolute Auto 900 /uL (1100-4500); Lymphocytes Percent Auto 10.9 % (25-40); Mean Corpuscular HGB Conc 34.4 % (30-36); Mean Corpuscular Hemoglobin 31.6 PG (26-34); Mean Corpuscular Volume 91.8 fL (80-100); Monocytes Absolute Auto 400 /uL (0-900); Monocytes Percent Auto 4.9 % (3-14); Neutrophils Absolute Auto 7100 /uL (1500-7000); Platelet Count 182 X10^3/uL (150-400); Red Blood Cell Count 4.71 X10^6/uL (4.5-5.9); Red Cell Distribution Width 14.8 % (11.6-14.8); White Blood Cell Count 8.5 X10^3/uL (4.5-11.0)
[2023-04-08 15:42] LABS: INR 2.5 (0.9-1.3); Prothrombin Time 29.3 SECONDS (10.1-12.7)
[2023-04-08 15:44] LABS: PTT Partial Thromboplastin Tim 39 SECONDS (26-36)
[2023-04-08 15:46] LABS: Alanine Aminotransferase 32 IU/L (<50); Albumin 4.2 g/dL (3.5-5.0); Albumin Globulin Ratio 1.6 (1.0-2.8); Alkaline Phosphatase 45 U/L (38-126); Aspartate Aminotransferase 31 IU/L (17-59); BUN Creatinine Ratio 22.2 (6-22); Bilirubin Total 0.5 mg/dL (0.2-1.3); Blood Urea Nitrogen 16 mg/dL (9-20); Calcium 9.8 mg/dL (8.4-10.2); Carbon Dioxide 27 mmol/L (22-32); Chloride 104 mmol/L (98-107); Creatine Kinase 116 U/L (55-170); Estimated Glomerular Filt Rate > 60 mL/min (>60); Globulin 2.7 g/dL (1.7-4.1); Glucose 142 mg/dL (80-110); HEMOLYSIS 22 (0-50); Lipase 101 U/L (23-300); Potassium 4.2 mmol/L (3.4-5.1); Sodium 136 mmol/L (137-145); Total Protein 6.9 g/dL (6.3-8.2)
[2023-04-08 15:57] LABS: Troponin I < 0.012 ng/mL (0.01-0.034)
[2023-04-08 16:07] VITALS: PULSE 75; RESP 18; O2SAT 97
[2023-04-08 16:09] VITALS: BP 145/88; PULSE 75; RESP 19; O2SAT 98
[2023-04-08 16:30] VITALS: BP 132/84; PULSE 72; RESP 21; O2SAT 97
--- NOTE | 2023-04-08 16:59 | ED_ITS ---
HPI - General Adult General Chief complaint: Syncope Stated complaint: ems ref/syncope Time Seen by Provider: 04/08/23 16:08 Source: patient Mode of arrival: Ambulatory History of Present Illness HPI narrative: Patient is an 87-year-old male. With a history of atrial fibrillation. He is on Coumadin. He states that today he was sitting at his computer where he states that he felt somewhat nauseous and then had what appeared to be a sy ncopal episode. He was not confused afterwards. No loss of bowel or bladder. Prior to the episode he was not having chest pain or palpitations. He currently is completely asymptomatic. This is never happened to him in the past. He did not hit his head. Related Data Home Medications Medication Instructions Recorded Confirmed simvastatin 40 mg tablet 40 mg PO QPM 06/02/20 03/19/23 vitamins A,C,[id number] 2,148 2 tab PO BID 12/31/22 03/19/23 mcg-113 mg-45 mg-17.4 mg tablet (PreserVision AREDS) Previous Rx's Medication Instructions Recorded acetaminophen 650 mg 650 mg PO Q12H PRN pain #40 tabs 08/29/21 tablet,extended release (Tylenol 8 Hour) warfarin 2.5 mg tablet See Rx Instructions PO DAILY #60 11/01/22 tabs warfarin 3 mg tablet See Rx Instructions .Route 11/01/22 .COMPLEX #60 tabs Allergies Allergy/AdvReac Type Severity Reaction Status Date / Time Penicillins Allergy Mild Localized Verified 04/08/23 15:08 Itching atropine AdvReac rapid Verified 04/08/23 15:08 heart rate Review of Systems Constitutional Constitutional: Reports system reviewed and no additional complaints, except as documented Eyes Eyes: Reports system reviewed and no additional complaints, except as documented ENT Ears, Nose, Mouth, and Throat: Reports system reviewed and no additional complaints, except as documented Cardiovascular Cardiovascular: Reports system reviewed and no additional complaints, except as documented Respiratory Respiratory: Reports system reviewed and no additional complaints, except as documented Gastrointestinal Gastrointestinal: Reports system reviewed and no additional complaints, except as documented Hematologic/Lymphatic On Anticoagulants: Yes Patient History Medical History Afib (~2018) Ascending aorta dilatation Atrial enlargement, bilateral Bicuspid aortic valve Bladder outlet obstruction BPH w urinary obs/LUTS (~2019) CAD (coronary artery disease) Chronic anticoagulation Degeneration, intervertebral disc, cervical Dyslipidemia Exercise involving walking First degree AV block Hypertension LVH (left ventricular hypertrophy) Mitral regurgitation SVT (supraventricular tachycardia) Tricuspid regurgitation Urinary retention Valvular heart disease Surgical History Anesthesia H/O cardiac radiofrequency ablation History of cardiac cath S/P aortic valve replacement with bioprosthetic valve (~2006) Vasectomy status Family History Father Broken hip Mother Alzheimer's disease Brother Cancer Social History marital status: number of children: 2 household members: spouse Smoking Status: Never smoker alcohol intake: current caffeine: Yes Smoking Status: Never smoker alcohol intake frequency: 0-2 drinks per day Alcohol type: hard liquor Substance Use Type: does not use Exam Initial Vital Signs Initial Vital Signs: Vital Signs Temperature 98 F 04/08/23 15:03 Pulse Rate 84 04/08/23 15:03 Respiratory Rate 16 04/08/23 15:03 Blood Pressure 134/83 04/08/23 15:03 Pulse Oximetry 98 04/08/23 15:03 Oxygen Delivery Method Room Air 04/08/23 15:03 HENMT Head: normal to inspection and normocephalic Resp Effort & Inspection: normal respiratory effort Auscultation: clear to auscultation bilaterally Cardio Rate: regular rate Rhythm: abnormal rhythm GI Inspection: normal to inspection Skin General: no rashes or lesions noted Neuro General: patient alert, patient awake, patient oriented x3 and moves all extremities Extrem General: normal to inspection and capillary refill normal Course Orders Ordered: ED Orders 04/08/23 15:08 XR chest 1V Stat EKG-12 Lead Stat 04/08/23 15:23 Complete Blood Count AUTO DIFF Stat Comprehensive Metabolic Panel Stat Lipase Stat Magnesium Stat PTT Partial Thromboplastin Mikael Stat Prothrombin Time INR Stat Troponin & CK Cardiac Panel Stat Discontinued Medications Aspirin (Aspirin 81 Mg Chew Tab) 324 mg PO NOW ONE Stop: 04/08/23 15:09 Last Admin: 04/08/23 17:12 Dose: Not Given Documented By: NL Vital Signs Vital signs: Vital Signs - 8 hr 04/08/23 15:03 04/08/23 16:07 04/08/23 16:09 Temperature 98 F Pulse Rate 84 75 75 Respiratory Rate 16 18 19 Blood Pressure 134/83 Pulse Oximetry 98 97 98 Oxygen Delivery Method Room Air 04/08/23 16:09 04/08/23 16:30 04/08/23 16:30 Temperature Pulse Rate 72 Respiratory Rate 21 Blood Pressure 145/88 H 132/84 Pulse Oximetry 97 Oxygen Delivery Method 04/08/23 17:00 04/08/23 17:00 Temperature Pulse Rate 69 Respiratory Rate 17 Blood Pressure 143/91 H Pulse Oximetry 97 Oxygen Delivery Method Medical Decision Making Lab Data Lab results reviewed: Yes I reviewed the patient's lab results. 04/08/23 15:04/08/23 15: Labs: Lab Results 04/08/23 04/08/23 04/08/23 Range/Units 15: 15: 15: WBC 8.5 (4.5-11.0) X10^3/uL RBC 4.71 (4.5-5.9) X10^6/uL Hgb 14.9 (13.5-17.5) g/dL Hct 43.2 (41-53) % MCV 91.8 (80-100) fL MCH 31.6 (26-34) PG MCHC 34.4 (30-36) % RDW 14.8 (11.6-14.8) % Plt Count 182 (150-400) X10^3/uL Neut % (Auto) 83.0 H (50-75) % Lymph % (Auto) 10.9 L (25-40) % [place] % (Auto) 4.9 (3-14) % Eos % (Auto) 0.6 L (2-4) % Baso % (Auto) 0.6 (0-2) % Neut # (Auto) 7100 H (3843-9920) /uL Lymph # (Auto) 900 L (5381-4074) /uL [place] # (Auto) 400 (0-900) /uL Eos # (Auto) 100 (0-450) /uL Baso # (Auto) 0 (0-100) /uL PT 29.3 H (10.1-12.7) SECONDS INR 2.5 H (0.9-1.3) APTT 39 H (26-36) SECONDS Sodium 136 L (137-145) mmol/L Potassium 4.2 (3.4-5.1) mmol/L Chloride 104 (98-107) mmol/L Carbon Dioxide 27 (22-32) mmol/L BUN 16 (9-20) mg/dL Creatinine 0.72 (0.66-1.25) mg/dL Estimated GFR > 60 (>60) mL/min BUN/Creatinine Ratio 22.2 H (6-22) Glucose 142 H (80-110) mg/dL Calcium 9.8 (8.4-10.2) mg/dL Magnesium 2.0 (1.6-2.3) mg/dL Total Bilirubin 0.5 (0.2-1.3) mg/dL AST 31 (17-59) IU/L ALT 32 (<50) IU/L Alkaline Phosphatase 45 (38-126) U/L Total Creatine Kinase 116 (55-170) U/L Troponin I < 0.012 (0.01-0.034) ng/mL Total Protein 6.9 (6.3-8.2) g/dL Albumin 4.2 (3.5-5.0) g/dL Globulin 2.7 (1.7-4.1) g/dL Albumin/Globulin Ratio 1.6 (1.0-2.8) Lipase 101 (23-300) U/L Imaging Data Chest x-ray: Radiologist's Impression: PROCEDURE:? XR CHEST 1V ? INDICATIONS:? chest pain ? TECHNIQUE:? One view of the chest was acquired.? ? COMPARISON:? None. ? FINDINGS:? ? Surgical changes and devices:? Median sternotomy wires are seen. ? Lungs and pleura:? Lungs are clear.? No pleural effusions or pneumothorax.? ? Mediastinum:? Tortuous thoracic aorta is seen.? Heart size is mildly enlarged. ? Bones and chest wall:? No suspicious bony lesions.? Overlying soft tissues appear unremarkable.? ? ? IMPRESSION:? No acute cardiopulmonary pathology ECG Data Attestation: I personally reviewed and interpreted this ECG as follows: Interpretation: Atrial fibrillation Ventricular rate is 71 Left axis deviation QRS [address] T wave changes MDM Narrative Medical decision making narrative: Patient is in AFib but is rate controlled. He is on anticoagulation. He currently is asymptomatic. I have low suspicion that this is seizure. Low suspicion for CVA/TIA. Electrolytes unremarkable. We discussed the possibility of a transient arrhythmia. We discussed admission to the hospital for further evaluation and cardiac monitoring versus discharge home and follow-up in the patient stated that he would like to be discharged home. I do feel that we can hold on any head CT is I have low suspicion for an acute intracranial issues such as head bleed. He was given return precautions. He expressed understanding and agreement. Discharge Plan Departure Patient Disposition: Home Clinical Impression: Syncope, Atrial fibrillation Instructions: DI for Syncope in Adults (Fainting) Activity Restrictions/Additional Instructions: I do recommend that you continue to take all of your medications as directed. I also recommend you contact your primary doctor to discuss the indications for a Holter monitor. 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 Return to the emergency department for new symptoms. Prescriptions: No Action warfarin 3 mg tablet See Rx Instructions .ROUTE .COMPLEX Qty: 60 1RF Dose Instruction: TAKE ONE TABLET BY MOUTH EVERY DAY Rx Instructions: Take one tablet Saturday warfarin 2.5 mg tablet See Rx Instructions PO DAILY Qty: 60 1RF Hold Instructions: dose change Rx Instructions: Take one tablet , Saturday, Saturday, Saturday PreserVision AREDS 2,148 mcg-113 mg-45 mg-17.4mg tablet 2 tab PO BID Rx Instructions: administer with AM and PM meals acetaminophen [Tylenol 8 Hour] 650 mg tablet extended release 650 mg PO Q12H PRN (Reason: pain) Qty: 40 0RF simvastatin 40 mg tablet 40 mg PO QPM Referrals: Raoul Johnson MD [Primary Care Provider] - Stand Alone Forms: Patient Portal/API
[2023-04-08 17:00] VITALS: BP 143/91; PULSE 69; RESP 17; O2SAT 97
== END 2023-04-08 17:13 | disposition home or self-care (01) ==
PROVIDERS: Emergency Provider Emergency Medicine; PCP Family Medicine
DX: R55 Syncope and collapse (principal); I48.91 Unspecified atrial fibrillation; Z79.01 Long term (current) use of anticoagulants; R07.9 Chest pain, unspecified
CPT/HCPCS: 36415; 71045; 80053; 82550; 83690; 83735; 84484; 85025; 85610; 85730; 93005; 99283; 99284

== ENCOUNTER → 2023-07-18 11:22 | Outpatient (CLI) | payer MEDICARE, OTHER, SELFPAY ==
[2021-07-21 11:48] VITALS: BMI 26.1
[2023-07-18 20:16] LABS: Alanine Aminotransferase 29 IU/L (<50); Albumin 4.2 g/dL (3.5-5.0); Albumin Globulin Ratio 1.7 (1.0-2.8); Alkaline Phosphatase 47 U/L (38-126); BUN Creatinine Ratio 22.1 (6-22); Bilirubin Total 1.1 mg/dL (0.2-1.3); Blood Urea Nitrogen 21 mg/dL (9-20); Calcium 9.9 mg/dL (8.4-10.2); Carbon Dioxide 27 mmol/L (22-32); Chloride 104 mmol/L (98-107); Cholesterol 146 mg/dL (140-199); Estimated Glomerular Filt Rate > 60 mL/min (>60); Globulin 2.5 g/dL (1.7-4.1); Glucose 106 mg/dL (80-110); HDL Cholesterol 54 mg/dL (40-60); HEMOLYSIS < 15 (0-50); LDL Cholesterol Calculated 72 mg/dL (<100); Magnesium 1.9 mg/dL (1.6-2.3); Potassium 4.8 mmol/L (3.4-5.1); Sodium 137 mmol/L (137-145); Total Protein 6.7 g/dL (6.3-8.2); Triglycerides 98 mg/dL (35-150)
[2023-07-18 20:32] LABS: TSH w/ Reflex to FT4 1.14 uIU/mL (0.47-4.68)
[2023-07-19 15:33] LABS: Aspartate Aminotransferase 35 IU/L (17-59)
== END ==
PROVIDERS: PCP Family Medicine; Visit Provider Specialist
DX: I48.19 Other persistent atrial fibrillation (principal); E78.5 Hyperlipidemia, unspecified; I10 Essential (primary) hypertension; R55 Syncope and collapse
CPT/HCPCS: 80053; 80061; 83735; 84443

== ENCOUNTER → 2024-04-27 12:06 | Outpatient (CLI) | payer MEDICARE, OTHER, SELFPAY ==
[2021-07-21 11:48] VITALS: BMI 26.1
--- NOTE | 2024-04-27 12:07 | DI.ECHO.S_ITS ---
[facility] : : [address] : : [place], : : [place] [id number] : : Phone: [phone] Echocardiogram Report + + :Name: KARRIEANTONI VelardeROXANNE Estrada Study Date: 04/27/2024 Height: 67 in : :[facility] ReadingLocation: Weight: 155 lb : : Gender: Male BSA: 1.8 m2 : :: 1935 Age: 88 yrs BP: 121/74 mmHg: :Reason For Study: S/P AVR : :Ordering Physician: KSENIA, : :GILDARDO Performed By: Bj Lewis : :Referring: GILDARDO MCCORMACK : + + Interpretation Summary Left ventricular systolic function appears moderately depressed with an estimated ejection fraction of 30 to 35% with moderate global hypokinesis that is significantly more prominent in the apical one third, possibly due to pacemaker activation. Contractility appears less dynamic and the apical wall motion abnormality is more prominent compared to the previous study. There is mild to moderate left ventricular enlargement, and measures larger compared to the previous study. While diastolic function is challenging to assess, there is now evidence for elevated filling pressures, likely higher compared to the previous exam. The right ventricle is borderline enlarged with mild hypokinesis and appears slightly larger and slightly less dynamic compared to the previous study. Right ventricular systolic pressure is estimated at 44 mmHg with a CVP of 8 mmHg and both are likely higher compared to the previous exam. There is severe left atrial enlargement and mild right atrial enlargement, both measuring larger compared to the previous study, particularly the former. There is moderate mitral and moderate tricuspid regurgitation and both appear more prominent compared to the previous exam. The bioprosthetic aortic valve appears to be functioning normally with trace aortic regurgitation and is unchanged. The ascending aorta is mildly enlarged at 3.7 cm, compared to 3.6 cm previously. The patient was predominantly in a paced rhythm at 70 to 85 bpm which is new compared to the previous exam. Procedure: A two-dimensional transthoracic echocardiogram with color flow and Doppler was performed. Comparison is made with the echocardiogram of 09/11/21. The study quality was technically good. A contrast injection of Definity was performed to improve assessment of LV function. The patient has a paced rhythm. This is new compared to the previous study. Left Ventricle: The left ventricle is mild-moderately dilated. The estimated left ventricular end diastolic volume is 158 mL compared to the previous 67 ml. There is borderline concentric left ventricular hypertrophy. There is no ventricular septal defect visualized. Left ventricular systolic function is moderately reduced. The ejection fraction is estimated to be 30-35%. There is moderate global hypokinesis of the left ventricle. There is a significant dyssynchronous contraction pattern due to the paced rhythm. This is more prominent compared to the previous study. Diastolic function could not be accurately assessed due to paced rhythm. Diastolic parameters suggest probable elevated filling pressures. This is likely higher compared to the previous study. Right Ventricle: There is a pacemaker lead in the right ventricle. The right ventricle is borderline dilated. Right ventricular systolic function is mildly reduced. This is slightly larger and slightly less dynamic compared to the previous study. Atria: The left atrium is severely dilated. The left atrium has significantly increased in size since the prior echo exam. The right atrium is mildly dilated. The right atrium has mildly increased in size since the prior echo exam. There is no Doppler evidence for an atrial septal defect. The interatrial septum bows toward right atrium consistent with elevated left atrial pressure. Mitral Valve: There is mild mitral annular calcification. The mitral valve leaflets appear mildly thickened, but open well. The mitral valve leaflets are slightly calcified. There is moderate mitral regurgitation. This is more prominent compared to the previous study. Aortic Valve: There is a bioprosthetic aortic valve. The prosthetic aortic valve is well-seated. The prosthetic aortic valve appears to open well. The gradients through the prosthetic aortic valve are within the normal range for this type of valve. There is probable normal prosthetic aortic valve function. There is trace aortic regurgitation. This is unchanged compared to the previous study. Tricuspid Valve: The tricuspid valve is not well visualized, but is grossly normal. There is moderate tricuspid regurgitation. This is more prominent compared to the previous study. The right ventricular systolic pressure is estimated to be at least 44 mmHg based on an estimated right atrial pressure of 8 mm Hg. Compared to the prior echo exam, there has been an increase in the severity of pulmonary hypertension. Pulmonic Valve: The pulmonic valve is normal in structure and function. There is trace pulmonic regurgitation. Great Vessels: The aortic root is normal size. The ascending aorta is mildly enlarged. This is unchanged compared to the previous study. The pulmonary artery is normal size. The IVC is dilated (diameter is greater than 2.1 cm) yet it collapses greater than 50% with a sniff. This suggests a right atrial pressure of 8 mm Hg. Pericardium/ Pleura There is no pericardial effusion. There is no pleural effusion. MMode/2D Measurements & Calculations LVIDd: 5.3 cm AoV Openin.3 cm LVIDs: 4.2 cm LVOT diam: 1.8 cm IVSd: 1.1 cm Ao root diam: 3.1 cm LVPWd: 0.94 cm asc Aorta Diam: 3.7 cm LV bach. diameter/BSA (cm/m^2): 2.9 Ao Arch Diam (Prox Trans): 2.2 cm LV sys. diameter/BSA (cm/m^2): 2.3 FS: 21.9 % EPSS: 1.3 cm LA A2 area: 31.5 cm2 RA long axis: 6.3 cm LA A4 area: 33.2 cm2 RA area: 20.5 cm2 LA length (vol): 6.9 cm RA vol: 56.5 ml LA vol: 128.1 ml RA : 31.2 ml/m2 LA vol index: 70.6 ml/m2 RVD1 (basal): 3.5 cm IVC diam: 2.5 cm RVD2 (mid): 2.6 cm TAPSE: 1.2 cm Doppler Measurements & Calculations Ao V2 max: 225.4 cm/sec LVOT Max Vinicio: 70.4 cm/sec Ao V2 mean: 164.6 cm/sec LV V1 max P.0 mmHg Ao V2 VTI: 42.6 cm LV V1 VTI: 12.9 cm Ao max P.3 mmHg Ao mean P.1 mmHg BERNABE(I,D): 0.76 cm2 MV E max vinicio: 94.2 cm/sec BERNABE(V,D): 0.79 cm2 MV A max vinicio: 31.0 cm/sec BERNABE indexed to BSA (cm^2/m^2): 0.42 MV E/A: 3.0 sev ratio: 0.30 Med Peak E' Vinicio: 3.4 cm/sec E/E' med: 27.8 Lat Peak E' Vinicio: 4.6 cm/sec E/E' lat: 20.6 E/e' average: 24.2 MV dec time: 0.21 sec TR max vinicio: 301.8 cm/sec TR max P.4 mmHg PA V2 max: 43.9 cm/sec SV(LVOT): 32.5 ml PA V2 mean: 29.9 cm/sec PA mean P.41 mmHg PA pr(Accel): 37.9 mmHg Reading Physician:08:36 AM
== END ==
PROVIDERS: PCP Family Medicine; Referring Provider Specialist; Visit Provider Specialist
DX: I08.1 Rheumatic disorders of both mitral and tricuspid valves (principal); Q23.1 Congenital insufficiency of aortic valve; Z95.2 Presence of prosthetic heart valve; R55 Syncope and collapse; I25.10 Atherosclerotic heart disease of native coronary artery without angina pectoris
CPT/HCPCS: C8929; Q9957

== ENCOUNTER → 2024-05-05 10:58 | Outpatient (CLI) | payer MEDICARE, OTHER, SELFPAY ==
[2021-07-21 11:48] VITALS: BMI 26.1
[2024-05-05 19:06] LABS: Hematocrit 46.8 % (41-53); Hemoglobin 15.6 g/dL (13.5-17.5); Mean Corpuscular HGB Conc 33.3 % (30-36); Mean Corpuscular Hemoglobin 31.8 PG (26-34); Mean Corpuscular Volume 95.8 fL (80-100); Platelet Count 137 X10^3/uL (150-400); Red Blood Cell Count 4.88 X10^6/uL (4.5-5.9); Red Cell Distribution Width 14.5 % (11.6-14.8); White Blood Cell Count 8.2 X10^3/uL (4.5-11.0)
[2024-05-05 19:12] LABS: Alanine Aminotransferase 28 IU/L (<50); Albumin 4.3 g/dL (3.5-5.0); Albumin Globulin Ratio 1.8 (1.0-2.8); Alkaline Phosphatase 58 U/L (38-126); Aspartate Aminotransferase 37 IU/L (17-59); BUN Creatinine Ratio 23.9 (6-22); Blood Urea Nitrogen 21 mg/dL (9-20); Carbon Dioxide 29 mmol/L (22-32); Chloride 102 mmol/L (98-107); Estimated Glomerular Filt Rate > 60 mL/min (>60); Globulin 2.4 g/dL (1.7-4.1); Glucose 95 mg/dL (80-110); HEMOLYSIS < 15 (0-50); Magnesium 2.2 mg/dL (1.6-2.3); Potassium 4.7 mmol/L (3.4-5.1); Sodium 138 mmol/L (137-145); Total Protein 6.7 g/dL (6.3-8.2)
== END ==
PROVIDERS: PCP Family Medicine; Visit Provider Specialist
DX: E78.5 Hyperlipidemia, unspecified (principal); I48.19 Other persistent atrial fibrillation
CPT/HCPCS: 80053; 83735; 85027

== ENCOUNTER → 2024-07-31 12:06 | Outpatient (CLI) | payer MEDICARE, OTHER, SELFPAY ==
[2021-07-21 11:48] VITALS: BMI 26.1
[2024-07-31 17:58] LABS: Add Manual Diff / Slide Review NO; Basophils Absolute Auto 0 /uL (0-100); Basophils Percent Auto 0.4 % (0-2); Eosinophils Absolute Auto 100 /uL (0-450); Hematocrit 46.9 % (41-53); Hemoglobin 15.6 g/dL (13.5-17.5); Lymphocytes Absolute Auto 900 /uL (1100-4500); Mean Corpuscular HGB Conc 33.2 % (30-36); Mean Corpuscular Hemoglobin 31.1 PG (26-34); Mean Corpuscular Volume 93.7 fL (80-100); Monocytes Absolute Auto 500 /uL (0-900); Monocytes Percent Auto 7.5 % (3-14); Neutrophils Absolute Auto 5500 /uL (1500-7000); Neutrophils Percent Auto 78.1 % (50-75); Platelet Count 171 X10^3/uL (150-400); Red Blood Cell Count 5.01 X10^6/uL (4.5-5.9); Red Cell Distribution Width 14.4 % (11.6-14.8)
[2024-07-31 18:11] LABS: BUN Creatinine Ratio 26.9 (6-22); Blood Urea Nitrogen 25 mg/dL (9-20); Calcium 9.7 mg/dL (8.4-10.2); Carbon Dioxide 31 mmol/L (22-32); Chloride 100 mmol/L (98-107); Estimated Glomerular Filt Rate > 60 mL/min (>60); Glucose 94 mg/dL (80-110); HEMOLYSIS < 15 (0-50); Potassium 4.9 mmol/L (3.4-5.1); Sodium 133 mmol/L (137-145)
== END ==
PROVIDERS: PCP Family Medicine; Referring Provider Internal Medicine Cardiovascular Disease; Visit Provider Internal Medicine Cardiovascular Disease
DX: I25.5 Ischemic cardiomyopathy (principal)
CPT/HCPCS: 80048; 85025

== ENCOUNTER → 2024-11-19 11:57 | Outpatient (CLI) | payer MEDICARE, OTHER, SELFPAY ==
[2021-07-21 11:48] VITALS: BMI 26.1
[2024-11-19 19:42] LABS: BUN Creatinine Ratio 28.6 (6-22); Blood Urea Nitrogen 26 mg/dL (9-20); Calcium 9.9 mg/dL (8.4-10.2); Carbon Dioxide 23 mmol/L (22-32); Chloride 105 mmol/L (98-107); Estimated Glomerular Filt Rate > 60 mL/min (>60); Glucose 89 mg/dL (70-99); HEMOLYSIS 20 (0-50); Magnesium 1.9 mg/dL (1.6-2.3); Potassium 5.1 mmol/L (3.4-5.1); Sodium 136 mmol/L (137-145)
[2024-11-19 19:43] LABS: Hematocrit 46.3 % (41-53); Hemoglobin 15.4 g/dL (13.5-17.5); Mean Corpuscular HGB Conc 33.4 % (30-36); Mean Corpuscular Hemoglobin 31.5 PG (26-34); Mean Corpuscular Volume 94.3 fL (80-100); Platelet Count 174 X10^3/uL (150-400); Red Blood Cell Count 4.91 X10^6/uL (4.5-5.9); Red Cell Distribution Width 13.9 % (11.6-14.8)
== END ==
PROVIDERS: PCP Family Medicine; Visit Provider Specialist
DX: I10 Essential (primary) hypertension (principal); I25.5 Ischemic cardiomyopathy; Z79.01 Long term (current) use of anticoagulants
CPT/HCPCS: 80048; 83735; 85027

== ENCOUNTER → 2025-03-17 13:37 | Outpatient (CLI) | payer MEDICARE, OTHER, SELFPAY ==
[2021-07-21 11:48] VITALS: BMI 26.1
--- NOTE | 2025-03-17 17:34 | DI.ECHO.S_ITS ---
:Name: IVONNE RAMAN?Study Date: 03/17/2025? Height: 67 in? : :Hospital ?ReadingLocation:? Weight: 160 lb : : ?Gender: Male?BSA: 1.8 m2??? : :: 1935? Age: 89 yrs? BP: 122/86 mmHg: :Reason For Study: Cardiomyopathy? : :Ordering Physician: NIDA,?: :GILDARDO? Performed By: Hai Garcia?: :Referring: GILDARDO ALVA?: + + Interpretation Summary Left ventricular systolic function is moderately reduced with an estimated ejection fraction of 40 to 45% with mild global hypokinesis, worse apically, possibly due to a paced rhythm, as well as mild hypokinesis in the inferoposterior segment, but overall contractility has significantly improved, particularly in the apical and periapical segments. Left ventricular volumes are normal and significantly smaller compared to previous, and filling pressures are now likely normal and significantly lower. The right ventricle is normal in size with borderline hypokinesis and appears slightly more dynamic compared to the previous study. Right ventricular systolic pressure is estimated at 22 mmHg with a CVP of 3 mmHg and is significantly lower compared to the previous exam. There is severe left atrial enlargement that is unchanged and normal right atrial size which is significantly smaller compared to the previous study. There is mild mitral and mild tricuspid regurgitation, both improved from the previous study. 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 The severity ratio has improved from 0.30 up to 0.44. 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 The patient was in a paced rhythm at 63 to 70 bpm. Procedure: ?A two-dimensional transthoracic echocardiogram with color flow and Doppler was performed. The study quality was technically adequate. Comparison is made with the echocardiogram of 04/27/2024. The patient has a paced rhythm. The heart rate ranged between 63-71 bpm during the study. The patient had occasional PVCs during the exam. Left Ventricle: ?The left ventricle is normal in size. Left ventricular wall thickness is mildly increased. The estimated left ventricular end diastolic volume is 76 mL, compared to the previous 158 ml. Left ventricular systolic function is moderately reduced.The ejection fraction is estimated to be 40- 45%. There is mild global hypokinesis, worse apically, possibly due to a paced rhythm, as well as probable mild hypokinesis in the inferoposterior segment. Overall contractility appears more dynamic, especially in the apex and periapical segments. Filling pressures are likely normal and significantly lower compared to the previous study. Diastolic function could not be accurately assessed due to atrial fibrillation. 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 The right ventricle is normal size.Right ventricular systolic function is borderline reduced. This is slightly more dynamic compared to the previous study. Atria: ?The left atrium is severely dilated. This is unchanged compared to the previous study. Right atrial size is normal. This is significantly smaller compared to the previous study. There is no Doppler evidence for an interatrial shunt. Mitral Valve: ?There is mild mitral annular calcification. The mitral valve leaflets appear mildly thickened. There is no mitral valve stenosis. There is mild mitral regurgitation. This is less prominent compared to the previous study. Aortic Valve:? ?There is a bioprosthetic aortic valve. The prosthetic aortic valve is well-seated. There is trace intra valvular regurgitation through the prosthetic aortic valve.There is probable normal prosthetic aortic valve function. The peak aortic velocity is 2.3 m/sec. The peak aortic velocity on the previous exam was 2.3 m/sec. The aortic valve mean gradient is 13 mmHg compared to the previous 12 mmHg. The severity ratio has improved from 0.30 up to 0.44. Tricuspid Valve:? ?The tricuspid valve is not well visualized, but is grossly normal. There is mild tricuspid regurgitation. The right ventricular systolic pressure is estimated to be at least 22 mmHg based on an estimated right atrial pressure of 3 mm Hg. This is improved compared to the previous study. Pulmonic Valve: ?The pulmonic valve is not well visualized. There is trace pulmonic regurgitation. Great Vessels:? ?There is aortic root sclerosis/calcification. The aortic root is normal size. The ascending aorta is mildly enlarged. This is unchanged compared to the previous study. The aortic arch could not be visualized. The IVC is of normal diameter and collapses greater than 50% with a sniff. This suggests a low right atrial pressure of 3 mm Hg. Pericardium/ Pleura ?There is no pericardial effusion. MMode/2D Measurements & Calculations LVIDd: 4.5 cm?LVOT diam: 2.3 cm LVIDs: 3.2 cm?Ao root diam: 2.9 cm FS: 27.9 %? asc Aorta Diam: 3.8 cm IVSd: 1.2 cm LVPWd: 1.1 cm LV bach. diameter/BSA (cm/m^2): 2.5 LV sys. diameter/BSA (cm/m^2):1.8 LA A2 area: 31.9 cm2?RA long axis: 6.6 cm LA A4 area: 30.4 cm2?RA area: 17.4 cm2 LA length (vol): 6.6 cm? RA vol: 38.8 ml LA vol: 124.8 ml? RA : 21.1 ml/m2 LA vol index: 67.8 ml/m2?IVC diam: 1.3 cm RVD1 (basal): 2.7 cm RVD2 (mid): 1.9 cm TAPSE: 1.0 cm Doppler Measurements & Calculations Ao V2 max: 227.6 cm/sec? LVOT Max Vinicio: 99.0 cm/sec Ao V2 mean: 176.6 cm/sec?LV V1 max P.9 mmHg Ao max P.7 mmHg?LV V1 VTI: 17.7 cm Ao mean P.4 mmHg?BERNABE(I,D): 1.8 cm2 Ao V2 VTI: 40.3 cm?BERNABE(V,D): 1.8 cm2 sev ratio: 0.44 BERNABE indexed to BSA (cm^2/m^2): 0.99 AI P1/2t: 622.5 msec AI dec slope: 193.1 cm/sec2 MV E max vinicio: 94.3 cm/sec?TR max vinicio: 216.5 cm/sec Med Peak E' Vinicio: 7.0 cm/sec? TR max P.8 mmHg E/E' med: 13.5? PA V2 max: 142.1 cm/sec Lat Peak E' Vinicio: 10.6 cm/sec? PA V2 mean:94.8 cm/sec E/E' lat: 8.9? PA mean P.2 mmHg E/e' average:11.2? PA pr(Accel): 19.1 mmHg MV dec time: 0.26 sec SV(LVOT): 73.2 ml Reading Physician:[id number] PM
== END ==
PROVIDERS: PCP Family Medicine; Referring Provider Family Medicine; Visit Provider Specialist
DX: I08.1 Rheumatic disorders of both mitral and tricuspid valves (principal); I25.5 Ischemic cardiomyopathy; I77.89 Other specified disorders of arteries and arterioles; Z95.2 Presence of prosthetic heart valve
CPT/HCPCS: 93306

== ENCOUNTER → 2025-03-26 09:13 | Outpatient (CLI) | payer MEDICARE, OTHER, SELFPAY ==
[2021-07-21 11:48] VITALS: BMI 26.1
[2025-03-26 18:47] LABS: Blood Urea Nitrogen 22 mg/dL (9-20); Calcium 9.8 mg/dL (8.4-10.2); Carbon Dioxide 27 mmol/L (22-32); Chloride 102 mmol/L (98-107); Cholesterol 130 mg/dL (140-199); Estimated Glomerular Filt Rate > 60 mL/min (>60); Glucose 88 mg/dL (70-99); HDL Cholesterol 70 mg/dL (40-60); HEMOLYSIS < 15 (0-50); Potassium 4.8 mmol/L (3.4-5.1); Sodium 138 mmol/L (137-145); Triglycerides 84 mg/dL (35-150)
[2025-03-26 19:11] LABS: Add Manual Diff / Slide Review NO; Hematocrit 47.1 % (41-53); Hemoglobin 15.8 g/dL (13.5-17.5); Lymphocytes Absolute Auto 1200 /uL (1100-4500); Mean Corpuscular HGB Conc 33.6 % (30-36); Mean Corpuscular Hemoglobin 31.3 PG (26-34); Mean Corpuscular Volume 93.2 fL (80-100); Platelet Count 164 X10^3/uL (150-400)
[2025-03-26 19:17] LABS: Prostate Specific Antigen 3.01 ng/mL (0.10-4.00); TSH w/ Reflex to FT4 1.27 uIU/mL (0.47-4.68)
== END ==
PROVIDERS: PCP Family Medicine; Visit Provider Family Medicine
DX: N40.1 Benign prostatic hyperplasia with lower urinary tract symptoms (principal); N13.8 Other obstructive and reflux uropathy; I25.10 Atherosclerotic heart disease of native coronary artery without angina pectoris; I48.20 Chronic atrial fibrillation, unspecified; E78.2 Mixed hyperlipidemia; I10 Essential (primary) hypertension; I49.5 Sick sinus syndrome; Z95.0 Presence of cardiac pacemaker
CPT/HCPCS: 80048; 80061; 84153; 84443; 85025